=== PATIENT | male | born 1935 | race Caucasian/White ===

== ENCOUNTER → 2017-12-29 | Day surgery (SDC) | payer MEDICARE, BC ==
[2017-12-28 11:09] LABS: BASOPHILS # (AUTO) 0.1 (0.0-0.1); BASOPHILS % 0.4 % (0.0-1.0); EOSINOPHILS # (AUTO) 0.1 (0.0-0.4); EOSINOPHILS % 0.6 % (0.0-6.0); HEMOGLOBIN 12.9 g/dL (14.0-18.0); LYMPHOCYTES % 22.3 % (18.0-39.1); MEAN CORPUSCULAR HEMOGLOBIN 28.3 pg (28-32); MEAN CORPUSCULAR HGB CONC 32.3 g/dL (31-35); MEAN CORPUSCULAR VOLUME 87.7 fL (81-99); MONOCYTES # (AUTO) 1.1 (0.2-0.8); MONOCYTES % 8.1 % (4.4-11.3); NEUTROPHILS # (AUTO) 9.3 (2.1-6.9); NEUTROPHILS % 68.3 % (38.7-80.0); PLATELET COUNT 301 x10e3/uL (140-360); RED BLOOD COUNT 4.56 x10e6/uL (4.3-5.7); RED CELL DISTRIBUTION WIDTH 14.6 % (11.7-14.4)
[2017-12-28 11:20] LABS: INR 0.93; PROTHROMBIN TIME 13.3 seconds (11.9-14.5)
[2017-12-28 11:28] LABS: ALBUMIN 3.9 g/dL (3.5-5.0); ANION GAP 18.7 mmol/L (8-16); CALCIUM 9.8 mg/dL (8.4-10.2); CHOL/HDL RATIO 5.5 (3.9-4.7); CREATININE, SERUM 1.72 mg/dL (0.72-1.25); POTASSIUM 4.7 mmol/L (3.5-5.1)
[~2017-12-29] VITALS: Ht 177.8 cm; Wt 129.3 kg
[2017-12-29] VITALS (12 sets, daily range): BP systolic 151–184; BP diastolic 64–94
[~2017-12-29] MED LIST: ALBUTEROL0.63 MG/3 INH; ALPRAZOLAM 0.5 MG TAB ONE; AMLODIPINE BESYL5 MG PO; ASPIR 8181 MG PO; ASTEPRO205.5 MCG/; ATORVASTATIN CA20 MG PO; AZELASTINE137 MCG/0.; BUPROPION HCL100 MG PO; CEFDINIR300 MG PO; CELEBREX200 MG PO; CLONAZEPAM1 MG PO; CLONIDINE HCL0.1 MG PO; DEPO-TESTO200 MG/1 M INJ; DIOVAN160 MG PO; DIOVAN80 MG PO; DIPHENHYDRAMINE HCL 25 MG CAP ONE; FELODIPINE ER10 MG PO; FENTANYL CITRATE/PF 100MCG/2 ML INJ ONE; FINASTERIDE5 MG PO; FLUTICASONE PRO16 GM; FUROSEMIDE PO; FUROSEMIDE40 MG PO; GLYBURIDE5 MG PO; HEPARIN SOD/SOD CHLORIDE 2,000 ML ONE; HYDROCHLOROTHIA25 MG PO; IOPAMIDOL 370 MG/ML 200 ML INFUS..BTL INJ ONE; LASIX20 MG PO; LEVAQUIN500 MG PO; LEVAQUIN750 MG PO; LEVEMIR100 UNIT/1 SC; LEVOTHYROXINE50 MCG PO; LEXAPRO10 MG PO; LIDOCAINE HCL 2% LOCAL 20 ML VIAL ONE; LYRICA75 MG PO; METFORMIN HCL500 MG PO; METHOCARBAMOL750 MG PO; METHYLIN20 MG PO; METOPROLOL SUCC25 MG PO; MIDAZOLAM HCL 2 MG/2 ML VIAL ONE; NEXIUM20 MG PO; NEXIUM40 MG PO; NITROGLYCERIN0.4 MG SL; PREDNISONE20 MG PO; PREDNISONE50 MG PO; RITALIN20 MG PO; SODIUM CHLORIDE 0.9% 1000ML 1,000 ML ONE; SPIRIVA18 MCG INH; TAMSULOSIN HCL0.4 MG PO; TRESIBA SC; TURMERIC500 MG PO; VERAPAMIL HCL 2.5 MG/ML 2 ML VIAL ONE; VIIBRYD40 MG PO; VITAMIN B-121000 MCG PO; VITAMIN C500 MG PO; VITAMIN D32000 UNI1 PO; VYTORIN 10-201 EACH PO; VYTORIN 10-401 EACH PO; [UNRECOGNIZED DRUG - OTHER] PO
--- OUTSIDE RECORDS SUMMARY | 2017-12-29 07:26 | XMS REPORT | Continuity of Care Document ---
Author Author [facility] Interface Address Unknown Phone Unavailable Problems Problem Status Onset Date Classification Date Reported Comments Source Bradycardia, unspecified 04/16/2017 07/16/2017 [facility] HYPOTENSION Active 04/08/2017 [facility] Influenza vaccine needed 10/18/2015 Diagnosis 10/18/2015 [facility] CONFUSION/FACIAL DROOP Active 12/08/2013 [facility] TIA Active 12/08/2013 [facility] TIA Active 12/08/2013 [facility] Hypotension, unspecified 07/16/2017 [facility] Dehydration 07/16/2017 [facility] Acute kidney failure, unspecified 07/16/2017 [facility] Diarrhea, unspecified 07/16/2017 [facility] Adverse effect of loop [high-ceiling] diuretics, initial encounter 07/16/2017 [facility] Syncope and collapse 07/16/2017 [facility] Other specified abnormal findings of blood chemistry 07/16/2017 [facility] Chest pain, unspecified 07/16/2017 [facility] Type 2 diabetes mellitus with diabetic neuropathy, unspecified 07/16/2017 [facility] 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 07/16/2017 [facility] Hypertensive heart disease with heart failure 07/16/2017 [facility] Chronic diastolic heart failure 07/16/2017 [facility] Hypovolemia 07/16/2017 [facility] Pure hypercholesterolemia, unspecified 07/16/2017 [facility] Hypothyroidism, unspecified 07/16/2017 [facility] Benign prostatic hyperplasia without lower urinary tract symptoms 07/16/2017 [facility] Unspecified osteoarthritis, unspecified site 07/16/2017 [facility] Major depressive disorder, single episode, unspecified 07/16/2017 [facility] Presence of aortocoronary bypass graft 07/16/2017 [facility] Personal history of transient ischemic attack , and cerebral infarction without residual deficits 07/16/2017 [facility] Presence of artificial knee joint, bilateral 07/16/2017 [facility] Personal history of nicotine dependence 07/16/2017 [facility]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/16/2017 [facility] assisted use of oral hypoglycemic drugs 07/16/2017 [facility] Acute sciatica Resolved Problem 07/16/2017 [facility] Arthritis Resolved Problem 07/16/2017 [facility] CAD (<span ID="[id number]">Confirmed</span>) Resolved Problem 07/16/2017 [facility] Depression Resolved Problem 07/16/2017 [facility] Diabetes mellitus Resolved Problem 07/16/2017 [facility] Hypercholesteremia Resolved Problem 07/16/2017 [facility] Hypertension Resolved Problem 07/16/2017 [facility] Implant<sup>1</sup> Resolved Problem 07/16/2017 Penile [facility] Neuropathy Resolved Problem 07/16/2017 [facility] 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 07/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 [facility] TIA Resolved Problem 07/16/2017 [facility] TRANS CEREB ISCHEMIA NEC Active [facility] ACUTE KIDNEY FAILURE, UNSPECIFIED Active [facility] Medications Medication Details Route Status Patient Instructions Ordering Provider Order Date Source Hydralazine 25 mg, 1 tab, Route: PO, Drug form: TAB, Q8H- 06, Dosing Weight 120.455, kg, Start date: 04/09/17 14:00:00 SHIP MATE, Duration: 30 day, Stop date: 05/09/17 6:00:00 CDTNotes: (Same as: Apresoline) May interfere w/enteral feedings Take With Food. Inactive 04/09/2017 [facility] valsartan 40 mg oral tablet 40 mg=1 tab, PO, Daily, HOLD IF SBP LESS THAN OR EQUAL TO 120, # 30 tab, 2 Refill(s), Pharmacy: [facility]/pharmacy #[id number] Active 04/09/2017 [facility] Blood Pressure Monitor Upper Arm Misc/Other 1 ea, MISC, ONCE, Provide patient with extra large adult cuff. Diagnosis: 401.1, # 1 ea, 0 Refill(s) Active 04/09/2017 [facility] Amlodipine 10 mg, 1 tab, Route: PO, Drug form: TAB, Daily, Dosing Weight 120.455, kg, Start date: 04/09/17 13:00:00 SHIP MATE, Duration: 30 day, Stop date: 05/09/17 9:00:00 CDTNotes: (Same as: Norvasc) Inactive 04/09/2017 [facility] valsartan 40 mg, 1 tab, Route: PO, Drug form: TAB, Daily, Dosing Weight 120.455, kg, Start date: 04/09/17 13:00:00 SHIP MATE, Duration: 30 day, Stop date: 05/09/17 9:00:00 CDTNotes: Same as Diovan Inactive 04/09/2017 [facility] Streptococcus pneumoniae serotype 1 capsular antigen diphtheria [id number] protein conjugate vaccine / Streptococcus pneumoniae serotype 14 capsular antigen diphtheria [id number] protein conjugate vaccine / Streptococcus pneumoniae serotype 18C capsular antigen d 0.5 mL, Route: IM, Drug Form: INJ, ONCALL, Start date: 04/09/17 10:00:00 SHIP MATE, Duration: 30 day, Stop date: 05/09/17 10:59:00 CDTNotes: Shake well prior to use (Same as: Prevnar 13) Inactive 04/09/2017 [facility] influenza virus vaccine, inactivated 0.5 mL, Route: IM, Drug Form: SUSP, ONCALL, Start date: 04/09/17 10:00:00 SHIP MATE, Duration: 30 day, Stop date: 05/09/17 10:59:00 CDTNotes: (Same as: Fluzone Quadrivalent, Fluarix Quadrivalent) For 3 years of age and older (0.5 mL IM) Shake well before use Inactive 04/09/2017 [facility] Aspirin 325 MG Enteric Coated Tablet 325 mg, 1 tab, Route: PO, Drug form: ECTAB, Daily, Dosing Weight 120.455, kg, Start date: 04/09/17 9:00:00 SHIP MATE, Duration: 30 day, Stop date: 05/08/17 9:00:00 CDTNotes: (Do Not Crush) Do not crush or chew. Inactive 04/09/2017 [facility] Thyroxine 50 microgram, 1 tab, Route: PO, Drug form: TAB, Q630AM, Dosing Weight 120.455, kg, Start date: 04/09/17 6:30:00 SHIP MATE, Duration: 30 day, Stop date: 05/08/17 6:30:00 CDTNotes: Take 1 hour before or 2 hours after meal; Enteral feeds may interefere with the absorption of this medication.(Same as:Levothroid, Synthroid) Inactive 04/09/2017 [facility] vilazodone hydrochloride 40 MG Oral Tablet [Viibryd] 40 mg=1 tab, PO, Daily, 0 Refill(s) No Longer Active 04/09/2017 [facility] predniSONE 20 mg oral tablet 20 mg=1 tab, PO, Daily, 0 Refill(s) Active 04/09/2017 [facility] tramadol hydrochloride 50 MG Oral Tablet 50 mg=1 tab, PO, Q6H, PRN Pain Score 1-5, 0 Refill(s) Active 04/09/2017 [facility] Amlodipine 10 mg, PO, Daily, 0 Refill(s) Active 04/09/2017 [facility] Saline Flush 0.9% 10 ml, Route: IVP, Drug Form: INJ, Dosing Weight 120.455, kg, Q12H, Start date: 04/08/17 21:00:00 SHIP MATE, Duration: 30 day, Stop date: 05/08/17 9:00:00 CDTNotes: (Same as: BD Posiflush) No Longer Active 04/09/2017 [facility] heparin 5,000 unit, 1 mL, Route: SUB-Q, Drug form: INJ, Q12H, Dosing Weight 120.455, kg, Start date: 04/08/17 21:00:00 SHIP MATE, Stop date: 05/08/17 9:00:00 CDTNotes: porcine heparin No Longer Active 04/09/2017 [facility] Lipitor 40 mg, 1 tab, Route: PO, Drug form: TAB, Bedtime, Dosing Weight 120.455, kg, Start date: 04/08/17 21:00:00 SHIP MATE, Duration: 30 day, Stop date: 05/07/17 21:00:00 CDTNotes: (Same as: Lipitor) No Longer Active 04/09/2017 [facility] Lyrica 75 mg, 1 cap, Route: PO, Drug form: CAP, Q12H, Dosing Weight 120.455, kg, Start date: 04/08/17 21:00:00 SHIP MATE, Duration: 30 day, Stop date: 05/08/17 9:00:00 CDTNotes: (Same as: Lyrica) No Longer Active 04/09/2017 [facility] Clonazepam 1 mg, 1 tab, Route: PO, Drug form: TAB, BID, Dosing Weight 120.455, kg, PRN Anxiety, Start date: 04/08/17 19:44:00 SHIP MATE, Duration: 30 day, Stop date: 05/08/17 19:43:00 CDTNotes: (Same As: KlonoPIN) No Longer Active 04/09/2017 [facility] Tessalon Perles 100 mg, 1 cap, Route: PO, Drug form: CAP, TID, Dosing Weight 120.455, kg, PRN Cough, Start date: 04/08/17 19:44:00 SHIP MATE, Duration: 30 day, Stop date: 05/08/17 19:43:00 CDTNotes: (Same As: Tessalon Per les) "Do Not Crush" No Longer Active 04/09/2017 [facility] Azelastine hydrochloride 0.137 MG/ACTUAT Metered Dose Nasal [place] 2 spray, Route: NASAL, Drug Form: SPRY, Dosing Weight 120.455, kg, BID, PRN as needed for allergy symptoms, Start date: 04/08/17 19:44:00 SHIP MATE, Duration: 30 day, Stop date: 05/08/17 19:43:00 CDTNotes: (azelastine 137 microgram/inh 34 ml nasal SPR) Non-formulary drug. Same As: Astelin) No Longer Active 04/09/2017 [facility] Benadryl 25 mg, 0.5 mL, Route: IVP, Drug form: INJ, QID, Dosing Weight 120.455, kg, PRN as needed for itching, Start date: 04/08/17 19:43:00 SHIP MATE, Duration: 30 day, Stop date: 05/08/17 19:42:00 CDTNotes: (Same as: Benadryl) No Longer Active 04/09/2017 [facility] Sodium Chloride 0.9% IV 1,000 mL 1,000 mL, Rate: 40 ml/hr, Infuse over: 25 hr, Route: IV, Dosing Weight 120.455 kg, Total Volume: 1,000, Start date: 04/08/17 19:40:00 SHIP MATE, Duration: 30 day, Stop date: 05/08/17 19:39:00 CDT, 2.44, m2 No Longer Active 04/09/2017 [facility] levothyroxine 50 mcg (0.05 mg) oral tablet 50 microgram=1 tab, PO, Daily, # 30 tab, 0 Refill(s) Active 04/09/2017 [facility] Cholecalciferol 2000 UNT Oral Tablet 2,000 IntlUnit=1 tab, PO, Daily, # 30 tab, 0 Refill(s) Active 04/09/2017 [facility] azelastine nasal 137 mcg/inh spray 2 spray, NASAL, BID, PRN as needed for allergy symptoms, 0 Refill(s) Active 04/09/2017 [facility] benzonatate 100 MG Oral Capsule [Tessalon Perles] 100 mg=1 cap, PO, TID, PRN as needed for cough, # 30 cap, 0 Refill(s) Active 04/09/2017 [facility] amLODIPine 5 mg oral tablet 5 mg=1 tab, PO, Daily, # 30 tab, 0 Refill(s) No Longer Active 04/09/2017 [facility] isosorbide mononitrate 30 mg oral tablet, extended release 30 mg=1 tab, PO, QAM, # 30 tab, 0 Refill(s) Active 04/09/2017 [facility] Aspirin 81 MG Enteric Coated Tablet 81 mg=1 tab, PO, Daily, # 90 tab, 3 Refill(s) Active 04/09/2017 [facility] atorvastatin 40 MG Oral Tablet [Lipitor] 40 mg=1 tab, PO, Daily, # 30 tab, 0 Refill(s) Active 04/09/2017 [facility] pregabalin 150 MG Oral Capsule [Lyrica] 150 mg=1 cap, PO, BID, # 60 cap, 1 Refill(s) Active 04/09/2017 [facility] Metformin hydrochloride 1000 MG Oral Tablet 1,000 mg=1 tab, PO, BID-Meals, # 60 tab, 0 Refill(s) Active 04/09/2017 [facility] valsartan 80 mg oral tablet 80 mg=1 tab, PO, Daily, # 30 tab, 0 Refill(s) No Longer Active 04/09/2017 [facility] 3 ML insulin degludec 200 UNT/ML Pen Injector [Tresiba] 80 unit, SUB-Q, Daily, 0 Refill(s) Active 04/09/2017 [facility] Metoprolol Succinate ER 50 mg oral tablet, extended release 50 mg=1 tab, PO, Q12H, # 90 tab, 0 Refill(s) No Longer Active 04/09/2017 [facility] Insulin Lispro 2 unit, 0.02 mL, Route: SUB-Q, Drug form: SOLN, Bedtime, Dosing Weight 120.455, kg, PRN Blood Glucose Results, Start date: 04/08/17 17:02:00 SHIP MATE, Duration: 30 day, Stop date: 05/08/17 17:01:00 CDTNotes: (Same as: Humalog ) Roll in palms of hands gently; Do not shake `vigorously. "Single Patient Use Only " WASTE: F/P - Black; E - Municipal Trash Bin Stable for 28 days at room temperature. Expires in days from Date No Longer Active 04/08/2017 [facility] Dextrose 50% Syringe 12.5 gm, 25 mL, Route: IVP, Drug Form: INJ, Dosing Weight 120.455, kg, PRN, PRN Blood Glucose Results, Start date: 04/08/17 17:02:00 SHIP MATE, Duration: 30 day, Stop date: 05/08/17 18:01:00 CDT No Longer Active 04/08/2017 [facility] Glucagon 1 mg, Route: IM, Drug form: PDR/INJ, PRN, Dosing Weight 120.455, kg, PRN Blood Glucose Results, Start date: 04/08/17 17:02:00 SHIP MATE, Duration: 30 day, Stop date: 05/08/17 18:01:00 CDT No Longer Active 04/08/2017 [facility] Saline Flush 0.9% 10 ml, Route: IVP, Drug Form: INJ, Dosing Weight 120.455, kg, PRN, PRN Line Flush, Start date: 04/08/17 16:58:00 SHIP MATE, Duration: 30 day, Stop date: 05/08/17 17:57:00 CDTNotes: (Same as: BD Posiflush) No Longer Active 04/08/2017 [facility] Zofran 4 mg, 2 mL, Route: IV, Drug form: INJ, Q4H, Dosing Weight 120.455, kg, PRN Nausea, Start date: 04/08/17 16:58:00 SHIP MATE, Duration: 30 day, Stop date: 05/08/17 16:57:00 CDTNotes: (Same as: Zofran) MEDICATION WASTE Product Size: 4 mg Product Wasted: 0 mg No Longer Active 04/08/2017 [facility] Docusate Sodium 100 MG Oral Capsule [Colace] 100 mg, 1 cap, Route: PO, Drug form: CAP, BID, Dosing Weight 120.455, kg, PRN Constipation, Start date: 04/08/17 16:58:00 SHIP MATE, Duration: 30 day, Stop date: 05/08/17 16:57:00 CDTNotes: (Same as: Colace) (Do Not Crush) No Longer Active 04/08/2017 [facility] Morphine 2 mg, 1 mL, Route: IVP, Drug form: SOLN, Q4H, Dosing Weight 120.455, kg, PRN Chest Pain, Start date: 04/08/17 16:58:00 SHIP MATE, Duration: 30 day, Stop date: 05/08/17 16:57:00 CDT No Longer Active 04/08/2017 [facility] Lopressor 5 mg, 5 mL, Route: IVP, Drug form: INJ, Q6H, Dosing Weight 120.455, kg, PRN Other -See Comment, Start date: 04/08/17 16:58:00 SHIP MATE, Duration: 30 day, Stop date: 05/08/17 16:57:00 CDT, HR >/=100 OR SBP > /=175Notes: (Same as: Lopressor) Push over 2 minutes No Longer Active 04/08/2017 [facility] Hydralazine 10 mg, 0.5 mL, Route: IVP, Drug form: INJ, Q6H, Dosing Weight 120.455, kg, PRN Elevated BP, Start date: 04/08/17 16:58:00 SHIP MATE, Duration: 30 day, Stop date: 05/08/17 16:57:00 CDT, SBP>/=160 OR DBP> /=90Notes: (Same as: Apresoline) Push over 5 minutes No Longer Active 04/08/2017 [facility] Acetaminophen 650 mg, 2 tab, Route: PO, Drug form: TAB, Q6H, Dosing Weight 120.455, kg, PRN Pain 1-3/Temp > 99.5 F, Start date: 04/08/17 16:58:00 SHIP MATE, Duration: 30 day, Stop date: 05/08/17 16:57:00 CDTNotes: Do not exceed 4 gm/day. (Same as: Tylenol) No Longer Active 04/08/2017 [facility] Acetaminophen 325 MG / Hydrocodone Bitartrate 7.5 MG Oral Tablet [[place] 7.5/325] 1 tab, Route: PO, Drug Form: TAB, Dosing Weight 120.455, kg, Q4H, PRN Pain Score 4-6, Start date: 04/08/17 16:58:00 SHIP MATE, Duration: 30 day, Stop date: 05/08/17 16:57:00 CDTNotes: Same as [place] 325-7.5mg Do not exceed 4gm/day of acetaminophen. No Longer Active 04/08/2017 [facility] GI cocktail 30 ml, Route: PO, Drug Form: SUSP, Dosing Weight 120.455, kg, Q4H, PRN Indigestion, Routine, Start date: 04/08/17 16:58:00 SHIP MATE, Duration: 30 day, Stop date: 05/08/17 16:57:00 CDT, DYSPEPSIANotes: [place]. [facility] ocktail=antacid with simethicone 22.5 mL - lidocaine viscous 7.5 mL No Longer Active 04/08/2017 [facility] Nitroglycerin 0.4 mg, 1 tab, Route: SL, Drug form: TAB, Q5Min, Dosing Weight 120.455, kg, PRN Chest Pain, Start date: 04/08/17 16:58:00 SHIP MATE, Duration: 3 doses or times, Stop date: Limited # of timesNotes: (Same as:Magi Bender) "Do Not Crush" Sublingual tablet No Longer Active 04/08/2017 [facility] Protonix 40 mg, 1 tab, Route: PO, Drug form: ECTAB, Before Breakfast, Dosing Weight 120.455, kg, Priority: NOW, Start date: 04/08/17 16:57:00 SHIP MATE, Duration: 30 day, Stop date: 05/08/17 7:30:00 CDTNotes: Tablet s hould not be chewed or crushed. (Same as: Protonix) No Longer Active 04/08/2017 [facility] Melatonin 3 mg, 1 tab, Route: PO, Drug form: TAB, Bedtime, Dosing Weight 120.455, kg, PRN as needed for insomnia, Start date: 04/08/17 16:57:00 SHIP MATE, Duration: 30 day, Stop date: 05/08/17 16:56:00 CDT, ..Notes: (Same as: Melatonin) No Longer Active 04/08/2017 [facility] NS (Bolus) IV 1,000 mL, 1,000 ml/hr, Infuse Over: 1 hr, Route: IV, 1,000, Drug form: INJ, ONCE, Priority: STAT, Dosing Weight 120.455 kg, Start date: 04/08/17 14:01:00 SHIP MATE, Stop date: 04/08/17 14:01:00 SHIP MATE Inactive 04/08/2017 [facility] Saline Flush 0.9% 10 mL, Route: IVP, Drug Form: INJ, Dosing Weight 122.409, kg, PRN, PRN Line Flush, Start date: 04/08/17 13:41:00 SHIP MATE, Duration: 30 day, Stop date: 05/08/17 14:40:00 CDTNotes: (Same as: BD Posiflush) Inactive 04/08/2017 [facility] Aspirin 81 MG Enteric Coated Tablet 81 mg=1 tab, PO, Daily, # 30 tab, 0 Refill(s) Active 12/10/2013 [facility] Thyroxine 25 microgram, 1 tab, Route: PO, Drug form: TAB, Daily, Dosing Weight 123.182, kg, Start date: 12/10/13 6:00:00, Duration: 30 day, Stop date: 01/08/14 6:00:00Notes: Take 1 hour before or 2 hours after meal; Enteral feeds may interefere with the absorption of this medication. (Same as:Levothroid) Inactive 12/10/2013 [facility] tamsulosin 0.4 mg, 1 cap, Route: PO, Drug form: CAP, Bedtime, Dosing Weight 123.182, kg, Start date: 12/09/13 21:00:00, Duration: 30 day, Stop date: 01/07/14 21:00:00Notes: (Same As: Flomax) "Do Not Crush" No Longer Active 12/10/2013 [facility] ezetimibe 10 MG / Simvastatin 40 MG Oral Tablet 1 tab, Route: PO, Dosing Weight 123.182, kg, Bedtime, Start date: 12/09/13 21:00:00, Duration: 30 day, Stop date: 01/07/14 21:00:00 Inactive 12/10/2013 [facility] Zocor 40 mg, 1 tab, Route: PO, Drug form: TAB, Bedtime, Start date: 12/09/13 21:00:00, Duration: 30 day, Stop date: 01/07/14 21:00:00Notes: (Same as: Zocor) No Longer Active 12/10/2013 [facility] Glipizide 5 mg, 1 tab, Route: PO, Drug form: TAB, Daily, Dosing Weight 122.409, kg, Priority: NOW, Start date: 12/09/13 17:01:00, Duration: 30 day, Stop date: 01/08/14 9:00:00Notes: (Same as: Glucotrol) 30 min before meals. No Longer Active 12/09/2013 [facility] Zetia 10 mg, 1 tab, Route: PO, Drug form: TAB, QPM, Start date: 12/09/13 17:00:00, Duration: 30 day, Stop date: 01/07/14 17:00:00Notes: (Same as: Zetia) No Longer Active 12/09/2013 [facility] Protonix 40 mg, 1 tab, Route: PO, Drug form: ECTAB, Before Dinner, Start date: 12/09/13 16:30:00, Duration: 30 day, Stop date: 01/07/14 16:30:00Notes: Tablet should not be chewed or crushed. (Same as: Protonix) No Longer Active 12/09/2013 [facility] Aspirin 325 MG Enteric Coated Tablet 325 mg, 1 tab, Route: PO, Drug form: ECTAB, Daily, Dosing Weight 123.182, kg, Start date: 12/09/13 9:00:00, Duration: 30 day, Stop date: 01/07/14 9:00:00Notes: (Do Not Crush) Do not crush or chew. No Longer Active 12/09/2013 [facility] Bystolic 10 mg, 2 tab, Route: PO, Drug form: TAB, Daily, Dosing Weight 123.182, kg, Start date: 12/09/13 9:00:00, Duration: 30 day, Stop date: 01/07/14 9:00:00Notes: (same as: Bystolic) No Longer Active 12/09/2013 [facility] Furosemide 40 MG Oral Tablet 40 mg, 1 tab, Route: PO, Drug form: TAB, BID, Dosing Weight 123.182, kg, Start date: 12/09/13 9:00:00, Duration: 30 day, Stop date: 01/07/14 17:00:00Notes: (Same as: Lasix) May cause GI upset. Give with food or milk. No Longer Active 12/09/2013 [facility] Nexium 40 mg, Route: PO, Daily, Dosing Weight 123.182, kg, Start date: 12/09/13 9:00:00, Duration: 30 day, Stop date: 01/07/14 9:00:00 Inactive 12/09/2013 [facility] Celebrex 200 mg, 2 cap, Route: PO, Drug form: CAP, Daily, Dosing Weight 123.182, kg, Start date: 12/09/13 9:00:00, Duration: 30 day, Stop date: 01/07/14 9:00:00Notes: NSAID. Please check indication. Not for seizure. (Same As: CeleBREX ) No Longer Active 12/09/2013 [facility] Insulin, Regular, Pork 1 unit, 0.01 mL, Route: SUB-Q, Drug form: SOLN, Bedtime, Dosing Weight 123.182, kg, PRN Blood Glucose Results, Start date: 12/09/13 3:07:00, Duration: 30 day, Stop date: 01/08/14 3:06:00Notes: (Same as: Humulin R) Roll in palms of hands gently; Do not shake vigorously. "single patient use only" (Restricted to patients requiring a dose > 60 units) Stable for 28 days at room temperature Expires in days from Date No Longer Active 12/09/2013 [facility] Glucagon 1 mg, Route: IM, Drug form: PDR/INJ, PRN, Dosing Weight 123.182, kg, PRN Blood Glucose Results, Start date: 12/09/13 3:07:00, Duration: 30 day, Stop date: 01/08/14 2:06:00 No Longer Active 12/09/2013 [facility] Dextrose 50% Syringe 12.5 gm, 25 mL, Route: IVP, Drug Form: INJ, Dosing Weight 123.182, kg, PRN, PRN Blood Glucose Results, Start date: 12/09/13 3:07:00, Duration: 30 day, Stop date: 01/08/14 2:06:00 No Longer Active 12/09/2013 [facility] Nitroglycerin 0.4 MG Sublingual Tablet [Nitrostat] 0.4 mg, 1 tab, Route: SL, Drug form: TAB, Q5Min, Dosing Weight 123.182, kg, PRN as needed for chest pain, Start date: 12/09/13 2:57:00, Stop date: 01/08/14 1:56:00Notes: (Same as:Nitroquick, Nitrostat) "Do Not Crush" Sublingual tablet No Longer Active 12/09/2013 [facility] Clonazepam 1 mg, 1 tab, Route: PO, Drug form: TAB, BID, Dosing Weight 123.182, kg, PRN Anxiety, Start date: 12/09/13 2:57:00, Stop date: 01/08/14 2:56:00Notes: (Same As: KlonoPIN) No Longer Active 12/09/2013 [facility] Acetaminophen 325 MG / Hydrocodone Bitartrate 7.5 MG Oral Tablet [[place] 7.5/325] 1 tab, Route: PO, Drug Form: TAB, Dosing Weight 123.182, kg, Q4H, PRN as needed for pain, Start date: 12/09/13 2:57:00, Stop date: 01/08/14 2:56:00Notes: Same as [place] 325-7.5mg Do not exceed 4gm/day of acetaminophen. No Longer Active 12/09/2013 [facility] Clonidine Hydrochloride 0.1 MG Oral Tablet 0.1 mg, Route: PO, Drug form: TAB, ONCE, Dosing Weight 123.182, kg, Priority: STAT, Start date: 12/09/13 1:38:00, Stop date: 12/09/13 1:38:00 Inactive 12/09/2013 [facility] Nitroglycerin 0.02 MG/MG Topical Ointment 1 inch, Route: TOP, Drug Form: OINT, Dosing Weight 123.182, kg, ONCE, STAT, Start date: 12/09/13 1:34:00, Stop date: 12/09/13 1:34:00Notes: 1 gram is approximately 1 inch of nitroglycerin ointment (20 mg NTG per gram) (Same as:Nitro-Bid) Inactive 12/09/2013 [facility] Labetalol 20 mg, 4 mL, Route: IVP, Drug form: INJ, ONCE, Dosing Weight 123.182, kg, Priority: STAT, Start date: 12/09/13 1:00:00, Stop date: 12/09/13 1:00:00 Inactive 12/09/2013 [facility] aspirin 325 mg tablet 325 mg, 1 tab, Route: PO, Drug form: TAB, ONCE, Dosing Weight 123.182, kg, Priority: STAT, Start date: 12/08/13 23:48:00, Stop date: 12/08/13 23:48:00Notes: Take with food. No Longer Active 12/09/2013 [facility] Iohexol 85 mL, Route: IVP, Drug Form: SOLN, Dosing Weight 123.182, kg, ONCALL, STAT, Start date: 12/08/13 23:15:00, Duration: 1 doses or times, Dose=2.2ml/kg, Max clxa=056nd -- "To be infused by Radiology Staff ONLY"Special Instructions: Dose=2.2ml/kg, Max xrps=927ch -- "To be infused by Radiology Staff ONLY" Inactive 12/09/2013 [facility] Amlodipine 5 MG Oral Tablet amlodipine 5 mg tablet Active [facility] Azelastine hydrochloride 0.137 MG/ACTUAT Metered Dose Nasal [place] azelastine 137 mcg (0.1 %) nasal spray aerosol Active [facility] Azithromycin 250 MG Oral Tablet azithromycin 250 mg tablet Active [facility] benzonatate 200 MG Oral Capsule benzonatate 200 mg capsule Active [facility] 24 HR Bupropion Hydrochloride 150 MG Extended Release Oral Tablet bupropion HCl XL 150 mg 24 hr tablet, extended release Active [facility] nebivolol 20 MG Oral Tablet [Bystolic] Bystolic 20 mg tablet Active [facility] cefdinir 300 MG Oral Capsule cefdinir 300 mg capsule Active [facility] celecoxib 200 MG Oral Capsule celecoxib 200 mg capsule Active [facility] Cephalexin 500 MG Oral Capsule cephalexin 500 mg capsule Active [facility] Codeine Phosphate 2 MG/ML / Guaifenesin 20 MG/ML Oral Solution [Cheratussin] Cheratussin AC 10 mg-100 mg/5 mL oral liquid Active [facility] Ciprofloxacin 500 MG Oral Tablet ciprofloxacin 500 mg tablet Active [facility] Clonazepam 1 MG Oral Tablet clonazepam 1 mg tablet Active [facility] Clonidine Hydrochloride 0.1 MG Oral Tablet clonidine HCl 0.1 mg tablet Active [facility] Escitalopram 10 MG Oral Tablet escitalopram 10 mg tablet Active [facility] Escitalopram 20 MG Oral Tablet escitalopram 20 mg tablet Active [facility] 24 HR Felodipine 10 MG Extended Release Oral Tablet felodipine ER 10 mg tablet,extended release 24 hr Active [facility] Finasteride 5 MG Oral Tablet finasteride 5 mg tablet Active [facility] Fluconazole 100 MG Oral Tablet fluconazole 100 mg tablet Active [facility] Fluticasone propionate 0.05 MG/ACTUAT Metered Dose Nasal [place] fluticasone 50 mcg/actuation nasal spray,suspension Active [facility] 0.5 ML influenza A virus A/ (H1N1) antigen 0.12 MG/ML / influenza A virus A/[id number] (H3N2) antigen 0.12 MG/ML / [facility] 0.12 MG/ML Prefilled Syringe [Fluzone [id number]] Fluzone High-Dose 2014- (PF) 180 mcg/0.5 mL intramuscular syringe IMMUNIZATION GIVEN Active [facility] Furosemide 40 MG Oral Tablet furosemide 40 mg tablet Active [facility] gabapentin 100 MG Oral Capsule gabapentin 100 mg capsule TAKE ONE (1) CAPSULE(S) BY MOUTH THREE TIMES A DAY FOR DAYS 1-3, THEN 2 CAPSULES 3 TIMES A DAY DAYS 4-6, THEN 3 CAPSULES 3 TIMES A DAY DAYS Active [facility] Glipizide 5 MG Oral Tablet glipizide 5 mg tablet TAKE ONE (1) TABLET(S) BY MOUTH DAILY. Active [facility] Glyburide 5 MG Oral Tablet glyburide 5 mg tablet Active [facility] Hydrochlorothiazide 25 MG Oral Tablet hydrochlorothiazide 25 mg tablet Active [facility] Acetaminophen 325 MG / Hydrocodone Bitartrate 7.5 MG Oral Tablet hydrocodone 7.5 mg-acetaminophen 325 mg tablet Active [facility] homatropine methylbromide 0.3 MG/ML / Hydrocodone Bitartrate 1 MG/ML Oral Solution hydrocodone-homatropine 5 mg-1.5 mg/5 mL syrup Active [facility] inControl Pen Needle 31 gauge x 3/16" inControl Pen Needle 31 gauge x 3/16" Active [facility] Potassium Chloride 10 MEQ Extended Release Oral Tablet [Klor-Con] Klor-Con 10 mEq tablet,extended release Active [facility] 3 ML insulin detemir 100 UNT/ML Pen Injector [Levemir] Levemir FlexTouch 100 unit/mL (3 mL) subcutaneous insulin pen Active [facility] Levofloxacin 500 MG Oral Tablet levofloxacin 500 mg tablet Active [facility] Levofloxacin 750 MG Oral Tablet levofloxacin 750 mg tablet Active [facility] Levothyroxine Sodium 0.025 MG Oral Tablet levothyroxine 25 mcg tablet Active [facility] pregabalin 150 MG Oral Capsule [Lyrica] Lyrica 150 mg capsule Active [facility] pregabalin 75 MG Oral Capsule [Lyrica] Lyrica 75 mg capsule Active [facility] Metformin hydrochloride 1000 MG Oral Tablet metformin 1,000 mg tablet TAKE ONE (1) TABLET(S) BY MOUTH TWICE A DAY. Active [facility] Metformin hydrochloride 500 MG Oral Tablet metformin 500 mg tablet TAKE ONE (1) TABLET(S) BY MOUTH ONCE A DAY. Active [facility] Osmotic 24 HR Metformin hydrochloride 500 MG Extended Release Oral Tablet metformin ER 500 mg tablet,extended release 24hr Active [facility] Methocarbamol 750 MG Oral Tablet methocarbamol 750 mg tablet Active [facility] Methylphenidate Hydrochloride 20 MG Oral Tablet methylphenidate 20 mg tablet Active [facility] 24 HR metoprolol succinate 25 MG Extended Release Oral Tablet metoprolol succinate ER 25 mg tablet,extended release 24 hr TAKE ONE (1) TABLET(S) BY MOUTH DAILY. Active [facility] Mupirocin 0.02 MG/MG Topical Ointment mupirocin 2 % topical ointment APPLY ONCE TO THREE TIMES A DAY TO WOUND. Active [facility] Esomeprazole 40 MG Delayed Release Oral Capsule [Nexium] Nexium 40 mg capsule,delayed release Active [facility] 24 HR Niacin 1000 MG Extended Release Oral Tablet [Niaspan] Niaspan 1,000 mg tablet,extended release Active [facility] Nitroglycerin 0.4 MG Sublingual Tablet [Nitrostat] Nitrostat 0.4 mg sublingual tablet Active [facility] Sulfacetamide Sodium 100 MG/ML / Sulfur 50 MG/ML Medicated Liquid Soap [Prascion] PRASCION 10 %-5 % (w/w) topical cleanser Active [facility] 0.5 ML Streptococcus pneumoniae serotype 1 capsular antigen diphtheria [id number] protein conjugate vaccine 0.0044 MG/ML / Streptococcus pneumoniae serotype 14 capsular antigen diphtheria [id number] protein conjugate vaccine 0.0044 MG/ML / Streptococcus pneumoniae serotype 18C capsular antigen diphtheria [id number] protein conjugate vaccine 0.0044 MG/ML / Streptococcus pneumoniae serotype 19A capsular antigen d iphtheria [id number] protein conjugate vaccine 0.0044 MG/ML / Streptococcus pneumoniae serotype 19F capsular antigen diphtheria [id number] protein conjugate vaccine 0.0044 MG/ML / Streptococcus pneumoniae serotype 23F capsular antigen diphtheria [id number] protein conjugate vaccine 0.0044 MG/ML / Streptococcus pneumoniae serotype 3 capsular antigen diphtheria [id number] protein conjugate vaccine 0.0044 MG/ML / Streptococcus pneumoniae serotype 4 capsular antigen diphtheria [id number] protein conjugate vaccine 0.0044 MG/ML / Streptococcus pneumoniae serotype 5 capsular antigen diphtheria [id number] protein conjugate vaccine 0.0044 MG/ML / Streptococcus pneumoniae serotype 6A capsular antigen diphtheria [id number] protein conjugate vaccine 0.0044 MG/ML / Streptococcus pneumoniae serotype 6B capsular antigen diphtheria [id number] protein conjugate vaccine 0.0088 MG/ML / Streptococcus pneumoniae serotype 7F capsular antigen diphtheria [id number] protein conjugate vaccine 0.0044 MG/ML / Streptococcus pneumoniae serotype 9V capsular antigen diphtheria [id number] protein conjugate vaccine 0.0044 MG/ML Prefilled Syringe [Prevnar 13] Prevnar 13 (PF) 0.5 mL intramuscular syringe IMMUNIZATION ADMINISTERED Active [facility] Ramipril 10 MG Oral Capsule ramipril 10 mg capsule Active [facility] tiotropium 0.018 MG Inhalant Powder [Spiriva] Spiriva with HandiHaler 18 mcg and inhalation capsules Active [facility] Tamsulosin hydrochloride 0.4 MG Oral Capsule tamsulosin 0.4 mg capsule Active [facility] testosterone cypionate 200 MG/ML Injectable Solution testosterone cypionate 200 mg/mL intramuscular oil Active [facility] valsartan 320 MG Oral Tablet valsartan 320 mg tablet Active [facility] vilazodone hydrochloride 40 MG Oral Tablet [Viibryd] Viibryd 40 mg tablet Active [facility] ezetimibe 10 MG / Simvastatin 20 MG Oral Tablet [Vytorin] Vytorin 10 mg-20 mg tablet Active [facility] ezetimibe 10 MG / Simvastatin 40 MG Oral Tablet [Vytorin] Vytorin 10 mg-40 mg tablet TAKE ONE (1) TABLET(S) BY MOUTH AT BEDTIME. Active [facility] Allergies, Adverse Reactions, Alerts Substance Category Reaction Severity Reaction type Status Date Reported Comments Source Immunizations Immunization Date Given Site Status Last Updated Comments Source influenza, high dose seasonal 10/18/2015 completed [facility] pneumococcal 23-valent vaccine 06/26/2013 Left deltoid completed [place] [facility] zoster 01/15/2012 completed [facility] influenza, seasonal, injectable 01/15/2012 completed [facility] Results Order Name Results Value Reference Range Date Interpretation Comments Source CARDIAC ENZYMES Troponin-I 0.09 ng/mL 0.00 - 0.40 04/09/2017 [facility] CARDIAC ENZYMES Total CK 60 unit/L 12 - 191 04/09/2017 [facility] CHEM PANEL eGFR 33 mL/min/1.73m2 04/09/2017 Result Comment: The eGFR is calculated using the CKD-EPI formula. In most young, healthy individuals the eGFR will be >90 mL/min/1.73m2. The eGFR declines with age. An eGFR of 60-89 may be normal in some populations, particularly the elderly, for whom the CKD-EPI formula has not been extensively validated. Use of the eGFR is not recommended in the following populations: Individuals with unstable creatinine concentrations, including patients and those with serious co-morbid conditions. Patients with extremes in muscle mass or diet. The data above are obtained from the National Kidney Disease Education Program (NKDEP) which additionally recommends that when the eGFR is used in patients with extremes of body mass index for purposes of drug dosing, the eGFR should be multiplied by the estimated BMI. [facility] CHEM PANEL Globulin 2.9 g/dL 2.7 - 4.2 04/09/2017 [facility] CHEM PANEL A/G Ratio 1.1 0.7 - 1.6 04/09/2017 [facility] CHEM PANEL ALT 20 unit/L 0 - 65 04/09/2017 [facility] CHEM PANEL AST 18 unit/L 0 - 37 04/09/2017 [facility] CHEM PANEL Alk Phos 46 unit/L 39 - 136 04/09/2017 [facility] CHEM PANEL Bili Total 0.3 mg/dL 0.2 - 1.3 04/09/2017 [facility] CHEM PANEL B/C Ratio 19 6 - 25 04/09/2017 [facility] CHEM PANEL Total Protein 6.1 g/dL 6.4 - 8.4 04/09/2017 [facility] CHEM PANEL Calcium Lvl 8.6 mg/dL 8.5 - 10.5 04/09/2017 [facility] CHEM PANEL CO2 27 meq/L 24 - 32 04/09/2017 [facility] CHEM PANEL AGAP 12.6 meq/L 10.0 - 20.0 04/09/2017 [facility] CHEM PANEL Albumin Lvl 3.2 g/dL 3.5 - 5.0 04/09/2017 [facility] CHEM PANEL Glucose Lvl 143 mg/dL 70 - 99 04/09/2017 [facility] CHEM PANEL Chloride Lvl 106 meq/L 95 - 109 04/09/2017 [facility] CHEM PANEL Creatinine Lvl 1.88 mg/dL 0.50 - 1.40 04/09/2017 [facility] CHEM PANEL Sodium Lvl 142 meq/L 135 - 145 04/09/2017 [facility] CHEM PANEL Potassium Lvl 3.6 meq/L 3.5 - 5.1 04/09/2017 [facility] CHEM PANEL BUN 35 mg/dL 7 - 22 04/09/2017 [facility] CHEM PANEL Lactic Acid Lvl 0.8 mMol/L 0.5 - 2.2 04/09/2017 [facility] CHEM PANEL Magnesium Lvl 1.8 mg/dL 1.8 - 2.4 04/09/2017 [facility] CHEM PANEL Phosphorus 3.5 mg/dL 2.5 - 4.5 04/09/2017 [facility] HEMATOLOGY Lymphocytes 27.2 % 20.0 - 40.0 04/09/2017 [facility] HEMATOLOGY Segs 63.5 % 45.0 - 75.0 04/09/2017 [facility] HEMATOLOGY Eosinophils 1.1 % 0.0 - 4.0 04/09/2017 [facility] HEMATOLOGY Monocytes 7.5 % 2.0 - 12.0 04/09/2017 [facility] HEMATOLOGY Lymphocytes # 2.4 K/CMM 1.0 - 5.5 04/09/2017 [facility] HEMATOLOGY Segs-Bands # 5.6 K/CMM 1.5 - 8.1 04/09/2017 [facility] HEMATOLOGY Basophils 0.7 % 0.0 - 1.0 04/09/2017 [facility] HEMATOLOGY Eosinophils # 0.1 K/CMM 0.0 - 0.5 04/09/2017 [facility] HEMATOLOGY Monocytes # 0.7 K/CMM 0.0 - 0.8 04/09/2017 [facility] HEMATOLOGY Basophils # 0.1 K/CMM 0.0 - 0.2 04/09/2017 [facility] HEMATOLOGY MPV 9.3 fL 7.4 - 10.4 04/09/2017 [facility] HEMATOLOGY MCHC 33.6 g/dL 32.0 - 36.0 04/09/2017 [facility] HEMATOLOGY RDW 15.4 % 11.5 - 14.5 04/09/2017 [facility] MCH 29.0 pg 27.0 - 31.0 04/09/2017 [facility] HEMATOLOGY RBC 3.87 M/CMM 4.70 - 6.10 04/09/2017 [facility] HEMATOLOGY Hgb 11.2 g/dL 14.0 - 18.0 04/09/2017 [facility] HEMATOLOGY Platelet 246 K/CMM 133 - 450 04/09/2017 [facility] HEMATOLOGY WBC 8.8 K/CMM 3.7 - 10.4 04/09/2017 [facility] HEMATOLOGY Hct 33.4 % 42.0 - 54.0 04/09/2017 [facility] MCV 86.3 fL 80.0 - 94.0 04/09/2017 [facility] LIPIDS VLDL 33 04/09/2017 [facility] LIPIDS Chol 162 mg/dL <=199 mg/dL 04/09/2017 [facility] LIPIDS Trig 166 mg/dL <=149 mg/dL 04/09/2017 [facility] LIPIDS LDL (Calculated) 100 mg/dL <=99 mg/dL 04/09/2017 [facility] LIPIDS CHD Risk 5.59 4.00 - 7.30 04/09/2017 [facility] LIPIDS HDL 29 mg/dL >=61 mg/dL 04/09/2017 [facility] CARDIAC ENZYMES Troponin-I 0.10 ng/mL 0.00 - 0.40 04/09/2017 [facility] CARDIAC ENZYMES Total CK 83 unit/L 12 - 191 04/09/2017 [facility] CARDIAC ENZYMES CK MB Index 1.9 0.0 - 2.5 04/09/2017 [facility] CARDIAC ENZYMES CK MB 1.6 ng/mL 0.5 - 3.6 04/09/2017 [facility] URINE AND STOOL UA Hyal Cast 32 /LPF 0 - 2 04/08/2017 [facility] URINE AND STOOL UA Sq Epi None Seen 04/08/2017 [facility] URINE AND STOOL UA Urobilinogen <=1.0 mg/dL 0.1 - 1.0 04/08/2017 [facility] URINE AND STOOL UA WBC 2 /HPF 0 - 5 04/08/2017 [facility] URINE AND STOOL UA Leuk Est Negative (04/08/17 4:58 PM) Negative 04/08/2017 [facility] URINE AND STOOL UA Mucus Few /LPF None Seen /LPF 04/08/2017 [facility] URINE AND STOOL UA RBC 1 /HPF 0 - 2 04/08/2017 [facility] URINE AND STOOL UA Bacteria Occasional /HPF None Seen /HPF 04/08/2017 [facility] URINE AND STOOL UA Ketones Negative mg/dL Negative mg/dL 04/08/2017 [facility] URINE AND STOOL UA Blood Negative (04/08/17 4:58 PM) Negative 04/08/2017 [facility] URINE AND STOOL UA Bili Negative *NA* (04/08/17 4:58 PM) Negative 04/08/2017 [facility] URINE AND STOOL UA Glucose Negative mg/dL Negative mg/dL 04/08/2017 [facility] URINE AND STOOL UA Spec Grav 1.015 <=1.030 04/08/2017 [facility] URINE AND STOOL UA Nitrite Negative (04/08/17 4:58 PM) Negative 04/08/2017 [facility] URINE AND STOOL UA Color Yellow *NA* (04/08/17 4:58 PM) Yellow 04/08/2017 [facility] URINE AND STOOL UA Turbidity Slight *ABN* (04/08/17 4:58 PM) Clear 04/08/2017 [facility] URINE AND STOOL UA pH 5.0 5.0 - 8.0 04/08/2017 [facility] URINE AND STOOL UA Protein Negative mg/dL Negative mg/dL 04/08/2017 [facility] HEMATOLOGY INR 1.07 0.85 - 1.17 04/08/2017 [facility] HEMATOLOGY PT 13.9 s 12.0 - 14.7 04/08/2017 [facility] HEMATOLOGY PTT 27.6 s 22.9 - 35.8 04/08/2017 [facility] HEMATOLOGY Platelet 262 K/CMM 133 - 450 04/08/2017 [facility] MPV 9.1 fL 7.4 - 10.4 04/08/2017 [facility] RDW 15.2 % 11.5 - 14.5 04/08/2017 [facility] MCHC 33.3 g/dL 32.0 - 36.0 04/08/2017 [facility] Hct 38.2 % 42.0 - 54.0 04/08/2017 [facility] MCV 86.0 fL 80.0 - 94.0 04/08/2017 [facility] MCH 28.6 pg 27.0 - 31.0 04/08/2017 [facility] Hgb 12.7 g/dL 14.0 - 18.0 04/08/2017 [facility] RBC 4.44 M/CMM 4.70 - 6.10 04/08/2017 [facility] WBC 12.5 K/CMM 3.7 - 10.4 04/08/2017 [facility] CARDIAC ENZYMES Total CK 90 unit/L 12 - 191 04/08/2017 [facility] CARDIAC ENZYMES BNP 124 pg/mL <=100 pg/mL 04/08/2017 [facility] CARDIAC ENZYMES CK MB 1.2 ng/mL 0.5 - 3.6 04/08/2017 [facility] CARDIAC ENZYMES Troponin-I 0.10 ng/mL 0.00 - 0.40 04/08/2017 [facility] CARDIAC ENZYMES CK MB Index 1.3 0.0 - 2.5 04/08/2017 [facility] CHEM PANEL eGFR 22 mL/min/1.73m2 04/08/2017 Result Comment: The eGFR is calculated using the CKD-EPI formula. In most young, healthy individuals the eGFR will be >90 mL/min/1.73m2. The eGFR declines with age. An eGFR of 60-89 may be normal in some populations, particularly the elderly, for whom the CKD-EPI formula has not been extensively validated. Use of the eGFR is not recommended in the following populations: Individuals with unstable creatinine concentrations, including patients and those with serious co-morbid conditions. Patients with extremes in muscle mass or diet. The data above are obtained from the National Kidney Disease Education Program (NKDEP) which additionally recommends that when the eGFR is used in patients with extremes of body mass index for purposes of drug dosing, the eGFR should be multiplied by the estimated BMI. [facility] CHEM PANEL A/G Ratio 1.1 0.7 - 1.6 04/08/2017 [facility] CHEM PANEL Sodium Lvl 139 meq/L 135 - 145 04/08/2017 [facility] CHEM PANEL BUN 38 mg/dL 7 - 22 04/08/2017 [facility] CHEM PANEL Chloride Lvl 104 meq/L 95 - 109 04/08/2017 [facility] CHEM PANEL Potassium Lvl 4.0 meq/L 3.5 - 5.1 04/08/2017 [facility] CHEM PANEL Glucose Lvl 167 mg/dL 70 - 99 04/08/2017 [facility] CHEM PANEL Alk Phos 53 unit/L 39 - 136 04/08/2017 [facility] CHEM PANEL Creatinine Lvl 2.66 mg/dL 0.50 - 1.40 04/08/2017 [facility] CHEM PANEL Calcium Lvl 9.2 mg/dL 8.5 - 10.5 04/08/2017 [facility] CHEM PANEL CO2 27 meq/L 24 - 32 04/08/2017 [facility] CHEM PANEL B/C Ratio 14 6 - 25 04/08/2017 [facility] CHEM PANEL Globulin 3.5 g/dL 2.7 - 4.2 04/08/2017 [facility] CHEM PANEL AGAP 12.0 meq/L 10.0 - 20.0 04/08/2017 [facility] CHEM PANEL Bili Total 0.5 mg/dL 0.2 - 1.3 04/08/2017 [facility] CHEM PANEL Total Protein 7.3 g/dL 6.4 - 8.4 04/08/2017 [facility] CHEM PANEL Albumin Lvl 3.8 g/dL 3.5 - 5.0 04/08/2017 [facility] CHEM PANEL ALT 24 unit/L 0 - 65 04/08/2017 [facility] CHEM PANEL AST 27 unit/L 0 - 37 04/08/2017 [facility] CHEM PANEL Magnesium Lvl 1.8 mg/dL 1.8 - 2.4 04/08/2017 [facility] CHEM PANEL Lipase Lvl 76 unit/L 73 - 393 04/08/2017 [facility] Chest 1view DX Chest 1view DX Clinical Indication: - dizziness, hypotension, chest pain. Comparison: December 08, 2013 FINDINGS: Frontal chest radiograph was obtained. The lungs are adequately inflated and clear. There is no focal airspace consolidation, pleural effusion or pneumothorax. Cardiac silhouette is stable. The aorta is atherosclerotic and tortuous. Median sternotomy wires are noted. The bony structures are unremarkable. IMPRESSION: No acute radiographic abnormality of the thorax. SL: [id number] 04/08/2017 - - Read by: Kristian Rao MD Dictated Date/time: 04/08/17 16:03 Electronically Signed by: Kristian Rao MD 04/08/17 16:04 FINAL REPORT [facility] Brain wo contrast CT Brain wo contrast CT Patient Name: VIDAL DOMINGUEZ : 1935; Age: 81 years y/o Male MR: [id number] Study: Brain wo contrast CT 04/08/2017 2:01 PM [facility] Ordering Physician: Raza Kemp MD Clinical Indication: Acute cognitive change - dizziness, hypotension; Comparison: 12/08/2013 TECHNIQUE: CT images were obtained from the foramen magnum to the vertex without the use of intravenous contrast on a multidetector CT. Coronal and sagittal reconstructions were obtained. CT radiation dose DLP: 992 mGy-cm FINDINGS: There is no evidence of acute intracranial hemorrhage, subacute territorial infarct, mass effect, midline shift, extra-axial fluid collection, hydrocephalus or other acute abnormalities. There is moderate generalized cerebral volume loss with associated ventricular prominence. There are moderate nonspecific supratentorial white matter ill- defined hypodensities likely representing chronic small vessel ischemic changes in this age. There are no chronic territorial infarcts. There are calcifications in the carotid siphons and intradural vertebral arteries. The calvarium, paranasal sinuses and mastoids are unremarkable. If there is further concern for intracranial pathology or acute stroke, further assessment with an MRI of the brain should be considered. IMPRESSION: Moderate age-related changes without evidence of acute intracranial process. SL: [id number] 04/08/2017 - - Read by: Nohemy Grey Dictated Date/time: 04/08/17 15:35 Electronically Signed by: Nohemy Grey 04/08/17 15:37 FINAL REPORT [facility] CARDIAC ENZYMES CK MB 0.7 ng/mL 0.5 - 3.6 12/09/2013 [facility] CARDIAC ENZYMES CK MB Index 0.9 0.0 - 2.5 12/09/2013 [facility] CARDIAC ENZYMES Troponin-T null 0.000 - 0.100 12/09/2013 [facility] CARDIAC ENZYMES Total CK 76 unit/L 12 - 191 12/09/2013 [facility] CARDIAC ENZYMES Troponin-I 0.03 ng/mL 0.00 - 0.40 12/09/2013 [facility] LIPIDS CHD Risk 3.57 4.00 - 7.30 12/09/2013 [facility] LIPIDS Trig 250 mg/dL <=149 mg/dL 12/09/2013 [facility] LIPIDS Chol 157 mg/dL <=199 mg/dL 12/09/2013 [facility] LIPIDS HDL 44 mg/dL >=61 mg/dL 12/09/2013 [facility] LIPIDS LDL (Calculated) 63 mg/dL <=99 mg/dL 12/09/2013 [facility] LIPIDS VLDL 50 12/09/2013 [facility] SPECIAL CHEMISTRY Hgb A1C 8.7 % <=5.6 % 12/09/2013 [facility] CARDIAC ENZYMES Troponin-I 0.03 ng/mL 0.00 - 0.40 12/09/2013 [facility] CARDIAC ENZYMES Troponin-T null 0.000 - 0.100 12/09/2013 [facility] CARDIAC ENZYMES Total CK 82 unit/L 12 - 191 12/09/2013 [facility] CARDIAC ENZYMES CK MB Index 1.3 0.0 - 2.5 12/09/2013 [facility] CARDIAC ENZYMES CK MB 1.1 ng/mL 0.5 - 3.6 12/09/2013 [facility] LIPIDS VLDL 42 12/09/2013 [facility] LIPIDS LDL (Calculated) 82 mg/dL <=99 mg/dL 12/09/2013 [facility] LIPIDS Trig 209 mg/dL <=149 mg/dL 12/09/2013 [facility] LIPIDS Chol 166 mg/dL <=199 mg/dL 12/09/2013 [facility] LIPIDS HDL 42 mg/dL >=61 mg/dL 12/09/2013 [facility] LIPIDS CHD Risk 3.95 4.00 - 7.30 12/09/2013 [facility] SPECIAL CHEMISTRY Hgb A1C 8.9 % <=5.6 % 12/09/2013 [facility] URINE AND STOOL UA RBC 6-10 /HPF 0 - 2 12/09/2013 [facility] URINE AND STOOL UA pH 7.5 5.0 - 8.0 12/09/2013 [facility] URINE AND STOOL UA Turbidity Clear (12/09/13 12:06 AM) Clear 12/09/2013 [facility] URINE AND STOOL UA Protein Negative (12/09/13 12:06 AM) Negative 12/09/2013 [facility] URINE AND STOOL UA Glucose Negative (12/09/13 12:06 AM) Negative 12/09/2013 [facility] URINE AND STOOL UA Spec Grav 1.010 <=1.030 12/09/2013 [facility] URINE AND STOOL UA Blood Trace *ABN* (12/09/13 12:06 AM) Negative 12/09/2013 [facility] URINE AND STOOL UA Ketones Negative *NA* (12/09/13 12:06 AM) Negative 12/09/2013 [facility] URINE AND STOOL UA Urobilinogen 0.2 EU/dL 0.1 - 1.0 12/09/2013 [facility] URINE AND STOOL UA Bili Negative *NA* (12/09/13 12:06 AM) Negative 12/09/2013 [facility] URINE AND STOOL UA Nitrite Negative (12/09/13 12:06 AM) Negative 12/09/2013 [facility] URINE AND STOOL UA Leuk Est Negative (12/09/13 12:06 AM) Negative 12/09/2013 [facility] URINE AND STOOL UA Sq Epi Rare /LPF Few /LPF 12/09/2013 [facility] URINE AND STOOL UA WBC 0-2 /HPF None Seen /HPF 12/09/2013 [facility] URINE AND STOOL UA Color Yellow *NA* (12/09/13 12:06 AM) Yellow 12/09/2013 [facility] CARDIAC ENZYMES Troponin-I 0.03 ng/mL 0.00 - 0.40 12/09/2013 [facility] CHEM PANEL Phosphorus 3.2 mg/dL 2.5 - 4.5 12/09/2013 [facility] CHEM PANEL Magnesium Lvl 1.6 mg/dL 1.8 - 2.4 12/09/2013 [facility] CHEM PANEL B/C Ratio 19 6 - 25 12/09/2013 [facility] CHEM PANEL AGAP 13.6 meq/L 10.0 - 20.0 12/09/2013 [facility] CHEM PANEL A/G Ratio 1.1 0.7 - 1.6 12/09/2013 [facility] CHEM PANEL Globulin 3.2 g/dL 2.0 - 4.0 12/09/2013 [facility] CHEM PANEL eGFR 73 mL/min/1.73m2 12/09/2013 1Result Comment: The eGFR is calculated using the CKD-EPI formula. In most young, healthy individuals the eGFR will be >90 mL/min/1.73m2. The eGFR declines with age. An eGFR of 60-89 may be normal in some populations, particularly the elderly, for whom the CKD-EPI formula has not been extensively validated. Use of the eGFR is not recommended in the following populations: Individuals with unstable creatinine concentrations, including patients and those with serious co-morbid conditions. Patients with extremes in muscle mass or diet. The data above are obtained from the National Kidney Disease Education Program (NKDEP) which additionally recommends that when the eGFR is used in patients with extremes of body mass index for purposes of drug dosing, the eGFR should be multiplied by the estimated BMI. [facility] CHEM PANEL Calcium Lvl 8.8 mg/dL 8.5 - 10.5 12/09/2013 [facility] CHEM PANEL Glucose Lvl 231 mg/dL 70 - 99 12/09/2013 2Interpretive Data: Adult reference range values reflect the clinical guidelines of the [place] [employer]. [facility] CHEM PANEL BUN 19 mg/dL 7 - 22 12/09/2013 [facility] CHEM PANEL Creatinine Lvl 1.0 mg/dL 0.5 - 1.4 12/09/2013 [facility] CHEM PANEL Chloride Lvl 106 meq/L 95 - 109 12/09/2013 [facility] CHEM PANEL Sodium Lvl 142 meq/L 135 - 145 12/09/2013 [facility] CHEM PANEL Potassium Lvl 3.6 meq/L 3.5 - 5.1 12/09/2013 [facility] CHEM PANEL CO2 26 meq/L 24 - 32 12/09/2013 [facility] CHEM PANEL Total Protein 6.6 g/dL 6.4 - 8.4 12/09/2013 [facility] CHEM PANEL Alk Phos 44 unit/L 39 - 136 12/09/2013 [facility] CHEM PANEL Bili Total 0.4 mg/dL 0.2 - 1.3 12/09/2013 [facility] CHEM PANEL ALT 27 unit/L 0 - 65 12/09/2013 [facility] CHEM PANEL Albumin Lvl 3.4 g/dL 3.5 - 5.0 12/09/2013 [facility] CHEM PANEL AST 24 unit/L 0 - 37 12/09/2013 [facility] HEMATOLOGY INR 1.02 0.85 - 1.17 12/09/2013 3Interpretive Data: RECOMMENDED RANGES FOR PROTIME INR: 2.0-3.0 for most medical and surgical thromboembolic states. 2.5-3.5 for artificial heart valves and recurrent embolism. INR SHOULD BE USED ONLY FOR PATIENTS ON STABLE ANTICOAGULANT THERAPY. [facility] HEMATOLOGY PT 13.4 s 12.0 - 14.7 12/09/2013 [facility] HEMATOLOGY PTT 28.4 s 22.9 - 35.8 12/09/2013 4Interpretive Data: Heparin Therapeutic Range: 57 - 92 Seconds [facility] HEMATOLOGY RDW 13.1 % 11.5 - 14.5 12/09/2013 [facility] HEMATOLOGY MPV 9.0 fL 7.4 - 10.4 12/09/2013 [facility] HEMATOLOGY Platelet 256 K/CMM 133 - 450 12/09/2013 [facility] HEMATOLOGY RBC 4.51 M/CMM 4.70 - 6.10 12/09/2013 [facility] HEMATOLOGY WBC 10.5 K/CMM 3.7 - 10.4 12/09/2013 [facility] HEMATOLOGY Hgb 13.5 g/dL 14.0 - 18.0 12/09/2013 [facility] HEMATOLOGY Hct 39.3 % 42.0 - 54.0 12/09/2013 [facility] HEMATOLOGY MCV 87.2 fL 80.0 - 94.0 12/09/2013 [facility] HEMATOLOGY MCH 29.9 pg 27.0 - 31.0 12/09/2013 [facility] HEMATOLOGY MCHC 34.3 g/dL 32.0 - 36.0 12/09/2013 [facility] HEMATOLOGY Plt Morph Normal (12/08/13 10:35 PM) 12/09/2013 [facility] HEMATOLOGY Atypical Lymphs 0.0 % <=0.0 % 12/09/2013 [facility] HEMATOLOGY Monocytes 10.0 % 2.0 - 12.0 12/09/2013 [facility] HEMATOLOGY Bands 0.0 % 0.0 - 11.0 12/09/2013 [facility] HEMATOLOGY Monocytes # 1.0 K/CMM 0.0 - 0.8 12/09/2013 [facility] HEMATOLOGY Lymphocytes 33.0 % 20.0 - 40.0 12/09/2013 [facility] HEMATOLOGY Segs 57.0 % 45.0 - 75.0 12/09/2013 [facility] HEMATOLOGY Lymphocytes # 3.5 K/CMM 1.0 - 5.5 12/09/2013 [facility] HEMATOLOGY Tot Cell Ct 100 12/09/2013 [facility] HEMATOLOGY Anisocyte 1+ *ABN* (12/08/13 10:35 PM) None Seen 12/09/2013 [facility] HEMATOLOGY Segs-Bands # 6.0 K/CMM 1.5 - 8.1 12/09/2013 [facility] Vital Signs Vital Sign Value Date Comments Source Systolic (mm Hg) 153 04/09/2017 [facility] Diastolic (mm Hg) 74 04/09/2017 [facility] Respitory Rate 18 04/09/2017 [facility] Temperature Oral (F) 97.6 F 04/09/2017 [facility] Heart Rate 59 04/09/2017 [facility] Systolic (mm Hg) 162 04/09/2017 [facility] Diastolic (mm Hg) 67 04/09/2017 [facility] Respitory Rate 18 04/09/2017 [facility] Heart Rate 66 04/09/2017 [facility] Temperature Oral (F) 97.8 F 04/09/2017 [facility] Heart Rate 66 04/09/2017 [facility] Systolic (mm Hg) 162 04/09/2017 [facility] Diastolic (mm Hg) 76 04/09/2017 [facility] Respitory Rate 18 04/09/2017 [facility] Temperature Oral (F) 97.6 F 04/09/2017 [facility] Height 172.72 cm 04/08/2017 [facility] BMI Calculated 40.38 04/08/2017 [facility] Weight 120.455 04/08/2017 [facility] Height 70 10/18/2015 [facility] Weight 270 10/18/2015 [facility] Diastolic (mm Hg) 65 12/10/2013 [facility] Systolic (mm Hg) 143 12/10/2013 [facility] Respitory Rate 13 12/10/2013 [facility] Temperature Oral (F) 97.2 F 12/10/2013 [facility] Heart Rate 73 12/10/2013 [facility] Temperature Oral (F) 97.6 F 12/10/2013 [facility] Diastolic (mm Hg) 72 12/10/2013 [facility] Respitory Rate 16 12/10/2013 [facility] Systolic (mm Hg) 150 12/10/2013 [facility] Diastolic (mm Hg) 74 12/10/2013 [facility] Respitory Rate 16 12/10/2013 [facility] Temperature Oral (F) 98.0 F 12/10/2013 [facility] Systolic (mm Hg) 166 12/10/2013 [facility] Heart Rate 73 12/09/2013 [facility] Heart Rate 63 12/09/2013 [facility] BMI Calculated 38.72 12/09/2013 [facility] Height 177.8 cm 12/09/2013 [facility] Weight 122.409 12/09/2013 [facility] Weight 123.182 12/09/2013 [facility] BMI Calculated 38.97 12/09/2013 [facility] Height 177.8 cm 12/09/2013 [facility] Encounters Location Location Details Encounter Type Encounter Number Reason For Visit Attending Provider ADM Date DC Date Status Source [facility] Observation Patient [id number] Nicola Schmidt 12/09/2013 12/10/2013 [facility] - [id number] Demetra Jaramillo, BURR GRINDER: [address] [place] [address], Ph. [id number] Demetra Jaramillo 10/18/2015 [facility] Observation [id number] Edwin Jackson II 04/08/2017 04/10/2017 [facility] Procedures Procedure Code Date Perfomer Comments Source Bilateral replacement of knee joints [id number] [place] CAB[facility] x 3 - Coronary artery bypass grafts x 3 [id number] [facility] Cholecystectomy [id number] [facility] Implant of inflatable penile prosthesis [id number] [facility] Tonsillectomy with adenoidectomy [id number] [facility] Implant of inflatable penile prosthesis [id number] [facility] Tonsillectomy with adenoidectomy [id number] [facility]
--- OUTSIDE RECORDS SUMMARY | 2017-12-29 07:26 | XMS REPORT | Summary of Care ---
Author Organization Unknown Address Unknown Phone Unavailable Encounter [facility](ZONIA) [id number] Date(s): 12/08/13 - 12/10/[address] Discharge Disposition: Home Physician Attending: Nicola Schmidt MD Physician Admitting: Nicola Schmidt MD Reason for Visit TIA Vital Signs 1 2 3 Most recent to oldest [Reference Range]: 177.8 cm (12/09/13 3:36 AM) 177.8 cm (12/08/13 9:32 PM) Height 97.2 DegF (12/10/13 7:00 AM) 97.6 DegF (12/10/13 3:06 AM) 98.0 DegF (12/09/13 11:13 PM) Temperature Oral [96.4-99.1 DegF] 143 mmHg *HI* (12/10/13 7:00 AM) 150 mmHg *HI* (12/10/13 3:06 AM) 166 mmHg *HI* (12/09/13 11:13 PM) Systolic Blood Pressure [90-140 mmHg] 65 mmHg (12/10/13 7:00 AM) 72 mmHg (12/10/13 3:06 AM) 74 mmHg (12/09/13 11:13 PM) Diastolic Blood Pressure [60-90 mmHg] 13 BRMIN *LOW* (12/10/13 7:00 AM) 16 BRMIN (12/10/13 3:06 AM) 16 BRMIN (12/09/13 11:13 PM) Respiratory Rate [14-20 BRMIN] 73 bpm (12/10/13 7:00 AM) 73 bpm (12/09/13 4:33 PM) 63 bpm (12/09/13 11:45 AM) Peripheral Pulse Rate [60-100 bpm] 122.409 kg (10/31/14 3:36 AM) 123.182 kg (12/08/13 9:32 PM) Weight 38.72 m2 (12/09/13 3:36 AM) 38.97 m2 (12/08/13 9:32 PM) Body Mass Index Problem List Condition Effective Dates Status Health Status Informant Acute Resolved sciatica(Confirmed) Arthritis(Confirmed) Resolved CAD (coronary artery Resolved disease)(Confirmed) Depression(Confirmed Resolved ) Diabetes Resolved mellitus(Confirmed) Hypercholesteremia(C Resolved onfirmed) Hypertension(Confirm Resolved ed) Implant(Confirmed)1 Resolved Neuropathy(Confirmed Resolved ) Penile erection Resolved impairment(Confirmed )2 TIA(Confirmed) Resolved 1Penile 2Penile implant Allergies, Adverse Reactions, Alerts Substance Reaction Severity Status NKDA Active Medications aspirin 325 mg tablet 325 mg, 1 tab, Route: PO, Drug form: TAB, ONCE, Dosing Weight 123.182, kg, Prior ity: STAT, Start date: 12/08/13 23:48:00, Stop date: 12/08/13 23:48:00 Notes: Take with food. Start Date: 12/08/13 Stop Date: 12/09/13 Status: Completed aspirin 325 mg tablet, enteric coated 325 mg, 1 tab, Route: PO, Drug form: ECTAB, Daily, Dosing Weight 123.182, kg, St art date: 12/09/13 9:00:00, Duration: 30 day, Stop date: 01/07/14 9:00:00 Notes: (Do Not Crush) Do not crush or chew. Start Date: 12/09/13 Stop Date: 12/10/13 Status: Discontinued aspirin 81 mg tablet, enteric coated 81 mg=1 tab, PO, Daily, # 30 tab, 0 Refill(s) Start Date: 12/10/13 Status: Ordered Bystolic 10 mg, 2 tab, Route: PO, Drug form: TAB, Daily, Dosing Weight 123.182, kg, Start date: 12/09/13 9:00:00, Duration: 30 day, Stop date: 01/07/14 9:00:00 Notes: (same as: Bystolic) Start Date: 12/09/13 Stop Date: 12/10/13 Status: Discontinued CeleBREX 200 mg, 2 cap, Route: PO, Drug form: CAP, Daily, Dosing Weight 123.182, kg, Star t date: 12/09/13 9:00:00, Duration: 30 day, Stop date: 01/07/14 9:00:00 Notes: NSAID. Please check indication. Not for seizure. (Same As: CeleBREX) Start Date: 12/09/13 Stop Date: 12/10/13 Status: Discontinued clonazePAM 1 mg, 1 tab, Route: PO, Drug form: TAB, BID, Dosing Weight 123.182, kg, PRN Anxi ety, Start date: 12/09/13 2:57:00, Stop date: 01/08/14 2:56:00 Notes: (Same As: KlonoPIN) Start Date: 12/09/13 Stop Date: 12/10/13 Status: Discontinued cloNIDine 0.1 mg oral tablet 0.1 mg, Route: PO, Drug form: TAB, ONCE, Dosing Weight 123.182, kg, Priority: ST AT, Start date: 12/09/13 1:38:00, Stop date: 12/09/13 1:38:00 Start Date: 12/09/13 Stop Date: 12/09/13 Status: Completed Dextrose 50% Syringe 12.5 gm, 25 mL, Route: IVP, Drug Form: INJ, Dosing Weight 123.182, kg, PRN, PRN Blood Glucose Results, Start date: 12/09/13 3:07:00, Duration: 30 day, Stop date : 01/08/14 2:06:00 Start Date: 12/09/13 Stop Date: 12/10/13 Status: Discontinued Dextrose 50% Syringe 25 gm, 50 mL, Route: IVP, Drug Form: INJ, Dosing Weight 123.182, kg, PRN, PRN Bl ood Glucose Results, Start date: 12/09/13 3:07:00, Duration: 30 day, Stop date: 01/08/14 2:06:00 Start Date: 12/09/13 Stop Date: 12/10/13 Status: Discontinued ezetimibe-simvastatin 1 tab, Route: PO, Dosing Weight 123.182, kg, Bedtime, Start date: 12/09/13 21:00 :00, Duration: 30 day, Stop date: 01/07/14 21:00:00 Start Date: 12/09/13 Stop Date: 12/09/13 Status: Discontinued furosemide 40 mg oral tablet 40 mg, 1 tab, Route: PO, Drug form: TAB, BID, Dosing Weight 123.182, kg, Start d ate: 12/09/13 9:00:00, Duration: 30 day, Stop date: 01/07/14 17:00:00 Notes: (Same as: Lasix) May cause GI upset. Give with food or milk. Start Date: 12/09/13 Stop Date: 12/10/13 Status: Discontinued glipiZIDE 5 mg, 1 tab, Route: PO, Drug form: TAB, Daily, Dosing Weight 122.409, kg, Priori ty: NOW, Start date: 12/09/13 17:01:00, Duration: 30 day, Stop date: 01/08/14 9: 00:00 Notes: (Same as: Glucotrol) 30 min before meals. Start Date: 12/09/13 Stop Date: 12/10/13 Status: Discontinued glucagon 1 mg, Route: IM, Drug form: PDR/INJ, PRN, Dosing Weight 123.182, kg, PRN Blood G lucose Results, Start date: 12/09/13 3:07:00, Duration: 30 day, Stop date: 01/08 2:06:00 Start Date: 12/09/13 Stop Date: 12/10/13 Status: Discontinued Insulin regular 1 unit, 0.01 mL, Route: SUB-Q, Drug form: SOLN, Bedtime, Dosing Weight 123.182, kg, PRN Blood Glucose Results, Start date: 12/09/13 3:07:00, Duration: 30 day, S top date: 01/08/14 3:06:00 Notes: (Same as: Humulin R) Roll in palms of hands gently; Do not shake vigorou sly. "single patient use only"(Restricted to patients requiring a dose > 60 units) Stable for 28 days at room temperatureExpires in days from _ Date Start Date: 12/09/13 Stop Date: 12/10/13 Status: Discontinued Insulin regular 4 unit, 0.04 mL, Route: SUB-Q, Drug form: SOLN, Bedtime, Dosing Weight 123.182, kg, PRN Blood Glucose Results, Start date: 12/09/13 3:07:00, Duration: 30 day, S top date: 01/08/14 3:06:00 Notes: (Same as: Humulin R) Roll in palms of hands gently; Do not shake vigorou sly. "single patient use only"(Restricted to patients requiring a dose > 60 units) Stable for 28 days at room temperatureExpires in days from _ Date Start Date: 12/09/13 Stop Date: 12/10/13 Status: Discontinued Insulin regular 8 unit, 0.08 mL, Route: SUB-Q, Drug form: SOLN, TID-Before Meals, Dosing Weight 123.182, kg, PRN Blood Glucose Results, Start date: 12/09/13 3:07:00, Duration: 30 day, Stop date: 01/08/14 3:06:00 Notes: (Same as: Humulin R) Roll in palms of hands gently; Do not shake vigorou sly. "single patient use only"(Restricted to patients requiring a dose > 60 units) Stable for 28 days at room temperatureExpires in days from _ Date Start Date: 12/09/13 Stop Date: 12/10/13 Status: Discontinued Insulin regular 6 unit, 0.06 mL, Route: SUB-Q, Drug form: SOLN, TID-Before Meals, Dosing Weight 123.182, kg, PRN Blood Glucose Results, Start date: 12/09/13 3:07:00, Duration: 30 day, Stop date: 01/08/14 3:06:00 Notes: (Same as: Humulin R) Roll in palms of hands gently; Do not shake vigorou sly. "single patient use only"(Restricted to patients requiring a dose > 60 units) Stable for 28 days at room temperatureExpires in days from _ Date Start Date: 12/09/13 Stop Date: 12/10/13 Status: Discontinued Insulin regular 4 unit, 0.04 mL, Route: SUB-Q, Drug form: SOLN, TID-Before Meals, Dosing Weight 123.182, kg, PRN Blood Glucose Results, Start date: 12/09/13 3:07:00, Duration: 30 day, Stop date: 01/08/14 3:06:00 Notes: (Same as: Humulin R) Roll in palms of hands gently; Do not shake vigorou sly. "single patient use only"(Restricted to patients requiring a dose > 60 units) Stable for 28 days at room temperatureExpires in days from _ Date Start Date: 12/09/13 Stop Date: 12/10/13 Status: Discontinued Insulin regular 2 unit, 0.02 mL, Route: SUB-Q, Drug form: SOLN, TID-Before Meals, Dosing Weight 123.182, kg, PRN Blood Glucose Results, Start date: 12/09/13 3:07:00, Duration: 30 day, Stop date: 01/08/14 3:06:00 Notes: (Same as: Humulin R) Roll in palms of hands gently; Do not shake vigorou sly. "single patient use only"(Restricted to patients requiring a dose > 60 units) Stable for 28 days at room temperatureExpires in days from _ Date Start Date: 12/09/13 Stop Date: 12/10/13 Status: Discontinued Insulin regular 10 unit, 0.1 mL, Route: SUB-Q, Drug form: SOLN, TID-Before Meals, Dosing Weight 123.182, kg, PRN Blood Glucose Results, Start date: 12/09/13 3:07:00, Duration: 30 day, Stop date: 01/08/14 3:06:00 Notes: (Same as: Humulin R) Roll in palms of hands gently; Do not shake vigorou sly. "single patient use only"(Restricted to patients requiring a dose > 60 units) Stable for 28 days at room temperatureExpires in days from _ Date Start Date: 12/09/13 Stop Date: 12/10/13 Status: Discontinued Insulin regular 3 unit, 0.03 mL, Route: SUB-Q, Drug form: SOLN, Bedtime, Dosing Weight 123.182, kg, PRN Blood Glucose Results, Start date: 12/09/13 3:07:00, Duration: 30 day, S top date: 01/08/14 3:06:00 Notes: (Same as: Humulin R) Roll in palms of hands gently; Do not shake vigorou sly. "single patient use only"(Restricted to patients requiring a dose > 60 units) Stable for 28 days at room temperatureExpires in days from _ Date Start Date: 12/09/13 Stop Date: 12/10/13 Status: Discontinued Insulin regular 2 unit, 0.02 mL, Route: SUB-Q, Drug form: SOLN, Bedtime, Dosing Weight 123.182, kg, PRN Blood Glucose Results, Start date: 12/09/13 3:07:00, Duration: 30 day, S top date: 01/08/14 3:06:00 Notes: (Same as: Humulin R) Roll in palms of hands gently; Do not shake vigorou sly. "single patient use only"(Restricted to patients requiring a dose > 60 units) Stable for 28 days at room temperatureExpires in days from _ Date Start Date: 12/09/13 Stop Date: 12/10/13 Status: Discontinued labetalol 20 mg, 4 mL, Route: IVP, Drug form: INJ, ONCE, Dosing Weight 123.182, kg, Priori ty: STAT, Start date: 12/09/13 1:00:00, Stop date: 12/09/13 1:00:00 Start Date: 12/09/13 Stop Date: 12/09/13 Status: Completed levothyroxine 25 microgram, 1 tab, Route: PO, Drug form: TAB, Daily, Dosing Weight 123.182, kg , Start date: 12/10/13 6:00:00, Duration: 30 day, Stop date: 01/08/14 6:00:00 Notes: Take 1 hour before or 2 hours after meal; Enteral feeds may interefere wi th the absorption of this medication. (Same as:Levothroid) Start Date: 12/10/13 Stop Date: 12/10/13 Status: Discontinued NexIUM 40 mg, Route: PO, Daily, Dosing Weight 123.182, kg, Start date: 12/09/13 9:00:00 , Duration: 30 day, Stop date: 01/07/14 9:00:00 Start Date: 12/09/13 Stop Date: 12/09/13 Status: Discontinued nitroglycerin 2% ointment 1 inch, Route: TOP, Drug Form: OINT, Dosing Weight 123.182, kg, ONCE, STAT, Star t date: 12/09/13 1:34:00, Stop date: 12/09/13 1:34:00 Notes: 1 gram is approximately 1 inch of nitroglycerin ointment (20 mg NTG pe r gram) (Same as:Nitro-Bid) Start Date: 12/09/13 Stop Date: 12/09/13 Status: Completed Nitrostat 0.4 mg sublingual tablet 0.4 mg, 1 tab, Route: SL, Drug form: TAB, Q5Min, Dosing Weight 123.182, kg, PRN as needed for chest pain, Start date: 12/09/13 2:57:00, Stop date: 01/08/14 1:56 :00 Notes: (Same as:Nitroquick, Nitrostat)"Do Not Crush" Sublingual tablet Start Date: 12/09/13 Stop Date: 12/10/13 Status: Discontinued [place] 7.5/325 oral tablet 1 tab, Route: PO, Drug Form: TAB, Dosing Weight 123.182, kg, Q4H, PRN as needed for pain, Start date: 12/09/13 2:57:00, Stop date: 01/08/14 2:56:00 Notes: Same as [place] 325-7.5mg Do not exceed 4gm/day of acetaminophen. Start Date: 12/09/13 Stop Date: 12/10/13 Status: Discontinued Omnipaque 350mg/ml 85 mL, Route: IVP, Drug Form: SOLN, Dosing Weight 123.182, kg, ONCALL, STAT, Sta rt date: 12/08/13 23:15:00, Duration: 1 doses or times, Dose=2.2ml/kg, Max dose =100ml -- "To be infused by Radiology Staff ONLY" Special Instructions: Dose=2.2ml/kg, Max odzv=435mq -- "To be infused by Radiol ogy Staff ONLY" Start Date: 12/08/13 Stop Date: 12/08/13 Status: Completed Protonix 40 mg, 1 tab, Route: PO, Drug form: ECTAB, Before Dinner, Start date: 12/09/13 1 6:30:00, Duration: 30 day, Stop date: 01/07/14 16:30:00 Notes: Tablet should not be chewed or crushed.(Same as: Protonix) Start Date: 12/09/13 Stop Date: 12/10/13 Status: Discontinued tamsulosin 0.4 mg, 1 cap, Route: PO, Drug form: CAP, Bedtime, Dosing Weight 123.182, kg, St art date: 12/09/13 21:00:00, Duration: 30 day, Stop date: 01/07/14 21:00:00 Notes: (Same As: Flomax) "Do Not Crush" Start Date: 12/09/13 Stop Date: 12/10/13 Status: Discontinued Zetia 10 mg, 1 tab, Route: PO, Drug form: TAB, QPM, Start date: 12/09/13 17:00:00, Dur ation: 30 day, Stop date: 01/07/14 17:00:00 Notes: (Same as: Zetia) Start Date: 12/09/13 Stop Date: 12/10/13 Status: Discontinued Zocor 40 mg, 1 tab, Route: PO, Drug form: TAB, Bedtime, Start date: 12/09/13 21:00:00, Duration: 30 day, Stop date: 01/07/14 21:00:00 Notes: (Same as: Zocor) Start Date: 12/09/13 Stop Date: 12/10/13 Status: Discontinued Results ELECTROLYTES 1 2 3 Most recent to oldest [Reference Range]: 142 mEq/L (12/08/13 10:48 PM) Sodium Lvl [135-145 mEq/L] 3.6 mEq/L (12/08/13 10:48 PM) Potassium Lvl [3.5-5.1 mEq/L] 106 mEq/L (12/08/13 10:48 PM) Chloride Lvl [95-109 mEq/L] 26 mEq/L (12/08/13 10:48 PM) CO2 [24-32 mEq/L] 13.6 mEq/L (12/08/13 10:48 PM) AGAP [10.0-20.0 mEq/L] CHEM PANEL 1 2 3 Most recent to oldest [Reference Range]: 1.0 mg/dL (12/08/13 10:48 PM) Creatinine Lvl [0.5-1.4 mg/dL] 73 mL/min/1.73m2 1 *NA* (12/08/13 10:48 PM) eGFR 19 mg/dL (12/08/13 10:48 PM) BUN [7-22 mg/dL] 19 (12/08/13 10:48 PM) B/C Ratio [6-25] 231 mg/dL 2 *HI* (12/08/13 10:48 PM) Glucose Lvl [70-99 mg/dL] 6.6 g/dL (12/08/13 10:48 PM) Total Protein [6.4-8.4 g/dL] 3.4 g/dL *LOW* (12/08/13 10:48 PM) Albumin Lvl [3.5-5.0 g/dL] 3.2 g/dL (12/08/13 10:48 PM) Globulin [2.0-4.0 g/dL] 1.1 (12/08/13 10:48 PM) A/G Ratio [0.7-1.6] 8.8 mg/dL (12/08/13 10:48 PM) Calcium Lvl [8.5-10.5 mg/dL] 3.2 mg/dL (12/08/13 10:48 PM) Phosphorus [2.5-4.5 mg/dL] 1.6 mg/dL *LOW* (12/08/13 10:48 PM) Magnesium Lvl [1.8-2.4 mg/dL] 27 unit/L (12/08/13 10:48 PM) ALT [0-65 unit/L] 24 unit/L (12/08/13 10:48 PM) AST [0-37 unit/L] 44 unit/L (12/08/13 10:48 PM) Alk Phos [39-136 unit/L] 0.4 mg/dL (12/08/13 10:48 PM) Bili Total [0.2-1.3 mg/dL] 1Result Comment: The eGFR is calculated using [...] from the National Kidney Disease Education Program ( NKDEP) which additionally recommends that when the eGFR is used in patients with extremes of body mass index for purposes of drug dosing, the eGFR should be mul tiplied by the estimated BMI. 2Interpretive Data: Adult reference range values reflect the clinical guidelines of the [place] [employer]. CARDIAC ENZYMES 1 2 3 Most recent to oldest [Reference Range]: 76 unit/L (12/09/13 2:06 PM) 82 unit/L (12/09/13 3:14 AM) Total CK [12-191 unit/L] 0.7 ng/mL (12/09/13 2:06 PM) 1.1 ng/mL (12/09/13 3:14 AM) CK MB [0.5-3.6 ng/mL] 0.9 (12/09/13 2:06 PM) 1.3 (12/09/13 3:14 AM) CK MB Index [0.0-2.5] <0.010 ng/mL (12/09/13 2:06 PM) <0.010 ng/mL (12/09/13 3:14 AM) Troponin-T [0.000-0.100 ng/mL] 0.03 ng/mL (12/09/13 2:06 PM) 0.03 ng/mL (12/09/13 3:14 AM) 0.03 ng/mL (12/08/13 10:48 PM) Troponin-I [0.00-0.40 ng/mL] LIPIDS 1 2 3 Most recent to oldest [Reference Range]: 3.57 *LOW* (12/09/13 2:06 PM) 3.95 *LOW* (12/09/13 3:14 AM) CHD Risk [4.00-7.30] 157 mg/dL (12/09/13 2:06 PM) 166 mg/dL (12/09/13 3:14 AM) Chol [<=199 mg/dL] 250 mg/dL *HI* (12/09/13 2:06 PM) 209 mg/dL *HI* (12/09/13 3:14 AM) Trig [<=149 mg/dL] 44 mg/dL *LOW* (12/09/13 2:06 PM) 42 mg/dL *LOW* (12/09/13 3:14 AM) HDL [>=61 mg/dL] 63 mg/dL (12/09/13 2:06 PM) 82 mg/dL (12/09/13 3:14 AM) LDL (Calculated) [<=99 mg/dL] 50 *NA* (12/09/13 2:06 PM) 42 *NA* (12/09/13 3:14 AM) VLDL SPECIAL CHEMISTRY 1 2 3 Most recent to oldest [Reference Range]: 8.7 % *HI* (12/09/13 2:06 PM) 8.9 % *HI* (12/09/13 3:14 AM) Hgb A1C [<=5.6 %] URINE AND STOOL 1 2 3 Most recent to oldest [Reference Range]: Clear (12/09/13 12:06 AM) UA Turbidity [Clear] Yellow *NA* (12/09/13 12:06 AM) UA Color [Yellow] 7.5 (12/09/13 12:06 AM) UA pH [5.0-8.0] 1.010 (12/09/13 12:06 AM) UA Spec Grav [<=1.030] Negative (12/09/13 12:06 AM) UA Glucose [Negative] Trace *ABN* (12/09/13 12:06 AM) UA Blood [Negative] Negative *NA* (12/09/13 12:06 AM) UA Ketones [Negative] Negative (12/09/13 12:06 AM) UA Protein [Negative] 0.2 EU/dL (12/09/13 12:06 AM) UA Urobilinogen [0.1-1.0 EU/dL] Negative *NA* (12/09/13 12:06 AM) UA Bili [Negative] Negative (12/09/13 12:06 AM) UA Leuk Est [Negative] Negative (12/09/13 12:06 AM) UA Nitrite [Negative] 0-2 /HPF (12/09/13 12:06 AM) UA WBC [None Seen /HPF] 6-10 /HPF *ABN* (12/09/13 12:06 AM) UA RBC [0-2 /HPF] Rare /LPF (12/09/13 12:06 AM) UA Sq Epi [Few /LPF] HEMATOLOGY 1 2 3 Most recent to oldest [Reference Range]: 10.5 K/CMM *HI* (12/08/13 10:35 PM) WBC [3.7-10.4 K/CMM] 4.51 M/CMM *LOW* (12/08/13 10:35 PM) RBC [4.70-6.10 M/CMM] 13.5 g/dL *LOW* (12/08/13 10:35 PM) Hgb [14.0-18.0 g/dL] 39.3 % *LOW* (12/08/13 10:35 PM) Hct [42.0-54.0 %] 87.2 fL (12/08/13 10:35 PM) MCV [80.0-94.0 fL] 29.9 pg (12/08/13 10:35 PM) MCH [27.0-31.0 pg] 34.3 g/dL (12/08/13 10:35 PM) MCHC [32.0-36.0 g/dL] 13.1 % (12/08/13 10:35 PM) RDW [11.5-14.5 %] 256 K/CMM (12/08/13 10:35 PM) Platelet [133-450 K/CMM] 9.0 fL (12/08/13 10:35 PM) MPV [7.4-10.4 fL] 57.0 % (12/08/13 10:35 PM) Segs [45.0-75.0 %] 0.0 % (12/08/13 10:35 PM) Bands [0.0-11.0 %] 33.0 % (12/08/13 10:35 PM) Lymphocytes [20.0-40.0 %] 0.0 % (12/08/13 10:35 PM) Atypical Lymphs [<=0.0 %] 10.0 % (12/08/13 10:35 PM) Monocytes [2.0-12.0 %] 6.0 K/CMM (12/08/13 10:35 PM) Segs-Bands # [1.5-8.1 K/CMM] 3.5 K/CMM (12/08/13 10:35 PM) Lymphocytes # [1.0-5.5 K/CMM] 1.0 K/CMM *HI* (12/08/13 10:35 PM) Monocytes # [0.0-0.8 K/CMM] 100 *NA* (12/08/13 10:35 PM) Tot Cell Ct 1+ *ABN* (12/08/13 10:35 PM) Anisocyte [None Seen] Normal (12/08/13 10:35 PM) Plt Morph 13.4 seconds (12/08/13 10:48 PM) PT [12.0-14.7 seconds] 1.02 3 (12/08/13 10:48 PM) INR [0.85-1.17] 28.4 seconds 4 (12/08/13 10:48 PM) PTT [22.9-35.8 seconds] 3Interpretive Data: RECOMMENDED RANGES FOR PROTIME INR: 2.0-3.0 for most medical and surgical thromboembolic states. 2.5-3.5 for artificial heart valves and recurrent embolism. INR SHOULD BE USED ONLY FOR PATIENTS ON STABLE ANTICOAGULANT THERAPY. 4Interpretive Data: Heparin Therapeutic Range: 57 - 92 Seconds Medications Administered During Your Visit No data available for this section Immunizations Vaccine Date Refusal Reason pneumococcal 23-valent vaccine 06/26/13 Procedures Procedure Type Body Site Date of Procedure Related Diagnosis Implant of inflatable penile prosthesis Tonsillectomy with adenoidectomy Social History Social History Type Response Alcohol Type: Beer, Has alcohol use interfered with work or home life? No, Do you ever drink more than intended? No, Has anyone been hurt or at risk by your drinking? No, Ready to change: No, Concerns about alcohol use in household: No Smoking Status Former smoker, Exposure to Tobacco Smoke None, Cigarette Smoking Last 365 Days No, Reg Smoking Cessation Counseling No Assessment and Plan Extracted from: Title: Stroke Follow Up Author: Naresh Bita Crumpmichael Chow Date: 12/09/13 Arranged for patient to [facility], 2014 at 9:00am with HERB Batista/Dr. Mcneal. Patient is aware and agreeable to appointment. Will remain available as needed. Bita Infante [facility]#[id number] [employer] Extracted from: Title: Clinical Document Author: Jorje Morales MD Date: 12/09/13 Stroke Consult Note Requesting Physician/Service: ED Reason for Consult: r/o TIA HISTORY OF PRESENT ILLNESS: 78M with CAD, HTN, HLD, and DM, presenting with confusion, right facial droop and slurred speech at a clinic appointment with his PCP. His symptoms started at approximately 3pm yesterday. At an outside ED his symptoms had apparently resolved. CT head was negative. He was transferred here for higher level of care. Review of Systems: GEN: No fever, chills, night sweats, weight loss, fatigue EYES: No blurred vision, double vision, eye pain ENT: No decreased hearing, nose bleeding, nasal congestion, sore throat CARDIO: No chest pain, palpitation, orthopnea, dyspnea on exertion PULM: No shortness of breath, cough, wheezing, asthma, sputum, hemoptysis GI: No nausea, vomiting, diarrhea, constipation, Abdominal Pain : No frequency, burning, hematuria, nocturia, hesitancy NEURO: As per HPI ENDO: No weight loss, weight gain, heat intolerance, cold intolerance SKIN: No rash, lesion, itching MUSC: No joint pain, muscle pain, arthritis, back pain Past Medical History: as above Past Surgical History: CABG, cholecystectomy, bilateral knee replacements Family History: heart disease, DM, TIA Social History: former smoker (stopped 50 years ago), occasional alcoholic beverage drinker, denies illicit drug use Medications: bystolic 10mg daily nexium 40mg daily nitrostat 0.4mg prn norco 7.5/325mg prn viibryd 40mg daily vytorin 10/40mg bedtime clonaxepam 1mg bid prn lasix 40mg bid glipizide 5 mg daily levothyroxine 25mcg daily tamsulosin 0.4mg daily Allergies: NKDA Physical Exam: Vitals and Temp: VitalsTmp(F)[id number] 12/09 08:[id number]--- 12/09 03:[id number]--- 12/09 01:51----[id number]--- 12/09 01:06----[id number]--- 12/08 23:45----[id number]--- 24 Hr Tmax: 97.0F (36.11c) at 12/09 03:15Vital Signs are the last 5 in the past 48 hours. HEAD - Normocephalic and atraumatic LUNGS - Clear to auscultation, no rales or rhonchi CVS - Rate rhythm regular, no murmur, no carotid bruit, equal pulses bilaterally ABDOMEN - Soft, non tender, with normal bowel sounds. No hepatosplenomegaly NEUROLOGY: AAO*3 Speech: fluent, comprehension intact, repetition and naming intact crop roller: pupils 3mm equal and briskly reactive, intact visual bashir on confrontation testing, EOMs full, intact sensation V1-V3 bilaterally, mild right facial droop, grossly intact hearing bilaterally, equal palatal elevation, full SCM strength bilaterally, tongue midline Motor: Tone: Normal Power: 5/5 in all groups of muscles in all four limbs Reflexes: 2+ symmetrical bilaterally Plantar: Flexor Drift: absent Sensory: Intact light touch and pin prick sensation Intact vibration and position sense Cerebellar signs: Intact FNT, heel to parker Gait: deferred NIHSS of 1 (mild right facial droop) Labs: 24hr Labs 12/09 0759 Glucose CHD723 H 12/09 0314 Troponin-T<0.010 Total CK82 Troponin-I0.03 CK MB1.1 CK MB Index1.3 12/09 0006 UA ColorYellow UA TurbidityClear UA Spec Grav1.010 UA pH7.5 UA ProteinNegative UA GlucoseNegative UA KetonesNegative UA BiliNegative UA BloodTrace UA Urobilinogen0.2 UA NitriteNegative UA Leuk EstNegative UA RBC6-10 UA WBC0-2 UA Sq EpiRare 12/08 2248 Sodium Zam680 Potassium Lvl3.6 Chloride Tja921 CO226 AGAP13.6 Glucose Uwp092 H Creatinine Lvl1.0 BUN19 B/C Ratio19 Total Protein6.6 Albumin Lvl3.4 L Globulin3.2 A/G Ratio1.1 Calcium Lvl8.8 ALT27 AST24 Alk Phos44 Bili Total0.4 eGFR73 Troponin-I0.03 Magnesium Lvl1.6 L Phosphorus3.2 PT13.4 INR1.02 PTT28.4 12/08 2235 WBC10.5 H RBC4.51 L Hgb13.5 L Hct39.3 L MCV87.2 MCH29.9 MCHC34.3 RDW13.1 Pyfefvzk237 MPV9.0 Segs57.0 Bands0.0 Gqqayuevodu00.0 Atypical Lymphs0.0 Ktvlacymk70.0 Segs-Bands #6.0 Lymphocytes #3.5 Monocytes #1.0 H Plt MorphNormal Tot Cell Ct100 Anisocyte1+ Diagnostic Tests: CTA head/neck: 1. Diffuse atherosclerotic disease without hemodynamically significant stenosis. 2. No intracranial branch occlusions. Assessment: 78M with CAD, HTN, HLD, and DM, presenting with transient confusion, right facial droop and slurred speech. On exam, he still has a very mild right facial droop, although his other deficits have resolved. Given his vascular risk factors, we need to rule out either a TIA or mild stroke. He did not receive IV TPA since he was out of the treatment window on arrival and he has rapidly resolving symptoms . Plan: -admit to Internal Medicine for TIA workup -MRI brain wo contrast -TTE, EKG, Hgb A1c, lipid panel -telemetry -start ASA, lipitor The case was discussed with Dr. Gordillo, the apron cleaner Stroke fellow. Jorje Morales MD PGY2 Neurology Resident MSO [id number] Pager [phone] STROKE ATTENDING I have seen and examined the patient. Furthermore, I have discussed the case with and reviewed the resident's note and agree with the history, exam, assessment and plan. See note below for additions and/or exceptions and my findings. I have personally viewed the patient's radiographic studies and laboratory tests. Exam: normal Imaging: CTH/A: unremarkable MRI/A: pending TTE: Conclusions: Normal LV size with mild concentric hypertrophy and normal systolic function. LVEF 60-65% Stage 1 diastolic dysfunction. Normal RV size and systolic function. Mild posterior mitral annular calcifications. No other significant valvular abnormalities. RV systolic pressure cannot be evaluated accurately. Saline contrast studies are negative for intracardiac shunting. No pericardial effusion. Normal aortic root dimensions. No prior study available. EKG: NSR Labs: Trops: neg Coags: nl LDL: p HgbA1c:p Assessment: 78 yr old with CV risk factors p/w resolved right FD and slurring of speech c/w TIA Plan: TIA, anterior circulation 435.8 Current suspected etiology: to be determined Continue evaluation: Check fasting lipids and HgbA1c Treatment: ASA for stroke prevention, Statin, 30 day event monitor to r/o PAFIB, follow up in stroke clinic in 8-10 weeks. Stable to d/c barring significant abnormality on MRI, plan D/W Dr. Schmidt Hypertension 401.9 Treatment: Start Oral BP meds, BP goals normalize Diabetes type II 250.00 Treatment: SSI, Start oral meds, goal HgbA1c < 7 Hyperlipidemia 272.2 Treatment: Statin Discuss philosophy of care with patient and family, reviewed and updated on plan of care and prognosis Code: 09826 CORE MEASURES: 1) Antithrombotics have been ordered and given before the end of hospital day 2 OR NOT APPLICABLE BECAUSE: 2) Statins have been ordered for LDL > 100 OR NOT APPLICABLE BECAUSE: 3) Rehab assessment has been ordered OR I have assessed the patient and rehab IS NOT APPLICABLE AT THIS TIME BECAUSE: 4) Stroke education: I have discussed with the patient and/or family in detail about 1. the signs and symptoms of stroke; 2. the importance of their early recognition and activation of EMS via 911; 3. stroke risk factors have been clearly identified and communicated to the patient; 4. The importance of taking prescribed medication to treat these risk factors for secondary stroke prevention; and 5. the importance of regular follow- up appointments to prevent stroke has also been emphasized. Susan Davila MD ([place]) [employer] Neu[employer] Pager: [phone] Addendum Stroke Clinic Follow up information: by Rand, He has an appointment made with Lynne Carrera on 01/24/14 at 9am. The clinic is located in [facility] at [address] [place] [address], [address], [place] [address]. Clinic MD on number is [phone]. 12/09/2013 15:34 Extracted from: Title: General Admission H&P * Author: Sanjay Kelly MD Date: 12/09/13 Impression and Plan 78 y/o WM pmh of CAD s/p CABG approx 5 yrs ago, HTN, BPH, HLD, DM type 2, Hypothyroidism, GERD presented with stroke like symptoms that are now improved concerning for possible TIA/stroke. -- TIA/stroke - pt still with slight right facial droop. CT and CTA head negative for acute infarct or significant stenosis. Will send pt for MRI brain and Echo with bubble study. Check HgA1c and lipid panel. Continue with ASA 325mg and statin for now. pending Stroke service recs/eval. -- CAD s/p prior cabg - continue ASA and statin -- HTN - currently elevated, possibly from TIA/stroke. Will restart home regimen of bystolic 10 qday, lasix 40mg bid, pt current med list does not show his previous regimen of clonidine 0.1 q8h and diovan 320mg. Will only give bystolic for now and monitor BP. -- BPH - continue tamsulosin -- DM type 2, with neuropathy - holding home regimen of glipizide and place on ISS for now, pending HgA1c, continue home neurontin -- Hypothyroidism - continue home levothyroxine 20mcg daily DVT ppx - heparin sub q Dispo - pending MRI, Echo and further stroke recsbrandon 1 midnight stay [facility] [place] Hospitalist [place] primary, pager [phone]
--- OUTSIDE RECORDS SUMMARY | 2017-12-29 07:27 | XMS REPORT ---
Author Author [facility] Address Unknown Phone Unavailable Care Team Providers Care Manager Freelance Name Role Phone Unavailable Unavailable Payers Payer Name Policy Type Policy Number Effective Date Expiration Date Problems This patient has no known problems. Allergies, Adverse Reactions, Alerts Allergy Name Allergy Type Status Severity Reaction(s) Onset Date Inactive Date Treating Clinician Comments No Known Allergies DA Active U 2017-12-04 00:00:00 No Known Drug Allergies DA Active U 2010-07-09 00:00:00 Medications This patient has no known medications.
--- OUTSIDE RECORDS SUMMARY | 2017-12-29 07:27 | XMS REPORT | Summary of Care ---
Author Author [facility] Organization [facility] Address Unknown Phone Unavailable Encounter HQ Haim(ZONIA) [id number] Date(s): 04/08/17 - 04/09/17 [facility] [address] [place] [address]- [phone] Encounter Diagnosis Bradycardia, unspecified (Final) - 04/15/17 Hypotension, unspecified (Final) - Dehydration (Final) - Acute kidney failure, unspecified (Final) - Diarrhea, unspecified (Final) - Adverse effect of loop [high-ceiling] diuretics, initial encounter (Final) - Syncope and collapse (Final) - Other specified abnormal findings of blood chemistry (Final) - Chest pain, unspecified (Final) - Type 2 diabetes mellitus with diabetic neuropathy, unspecified (Final) - Atherosclerotic heart disease of [place] coronary artery without angina pectoris (Final) - Hypertensive heart disease with heart failure (Final) - Chronic diastolic (congestive) heart failure (Final) - Hypovolemia (Final) - Pure hypercholesterolemia, unspecified (Final) - Hypothyroidism, unspecified (Final) - Benign prostatic hyperplasia without lower urinary tract symptoms (Final) - Unspecified osteoarthritis, unspecified site (Final) - Major depressive disorder, single episode, unspecified (Final) - Presence of aortocoronary bypass graft (Final) - Personal history of transient ischemic attack (TIA), and cerebral infarction wit hout residual deficits (Final) - Presence of artificial knee joint, bilateral (Final) - Personal history of nicotine dependence (Final) - MCC (current) use of aspirin (Final) - MCC (current) use of oral hypoglycemic drugs (Final) - Discharge Disposition: Home or Self Care Attending Physician: Edwin Cummings DO Admitting Physician: Edwin Cummings DO Vital Signs Most recent to 02 10 3 4 oldest [Reference Range]: Height 172.72 cm (04/08/17 1:49 PM) Current Weight 116.534 kg (04/09/17 5:06 AM) Temperature Oral 97.6 DegF 97.8 DegF 97.6 DegF [96.4-99.1 DegF] (04/09/17 5:22 PM) (04/09/17 12:45 PM) (04/09/17 8:15 AM) Blood Pressure 153/74 mmHg 162/67 mmHg 162/76 mmHg 182/75 mmHg [90-140/60-90 mmHg] *HI* *HI* *HI* *HI* (04/09/17 5:22 PM) (04/09/17 12:45 PM) (04/09/17 11:28 AM) (04/09/17 11:28 AM) Respiratory Rate 18 BRMIN 18 BRMIN 18 BRMIN [14-20 BRMIN] (04/09/17 5:22 PM) (04/09/17 12:45 PM) (04/09/17 8:15 AM) Peripheral Pulse 59 bpm 66 bpm 66 bpm 72 bpm Rate [60-100 bpm] *LOW* (04/09/17 12:45 PM) (04/09/17 11:28 AM) (04/09/17 11:28 AM) (04/09/17 5:22 PM) Weight 120.455 kg (04/08/17 1:49 PM) Body Mass Index 40.38 m2 (04/08/17 1:49 PM) Problem List Condition Effective Dates Status Health Status Informant Acute Resolved sciatica(Confirmed) Arthritis(Confirmed) Resolved CAD (coronary artery Resolved disease)(Confirmed) Depression(Confirmed Resolved ) Diabetes Resolved mellitus(Confirmed) Hypercholesteremia(C Resolved onfirmed) Hypertension(Confirm Resolved ed) Implant(Confirmed)1 Resolved Neuropathy(Confirmed Resolved ) Penile erection Resolved impairment(Confirmed )2 TIA(Confirmed) Resolved 1Penile 2Penile implant Allergies, Adverse Reactions, Alerts Substance Reaction Severity Status NKDA Active Medications acetaminophen 650 mg, 2 tab, Route: PO, Drug form: TAB, Q6H, Dosing Weight 120.455, kg, PRN Pa in 1-3/Temp > 99.5 F, Start date: 04/08/17 16:58:00 [employer], Duration: 30 day, Stop date: 05/08/17 16:57:00 CDT Notes: Do not exceed 4 gm/day. (Same as: Tylenol) Start Date: 04/08/17 Stop Date: 04/09/17 Status: Discontinued amLODIPine 10 mg, 1 tab, Route: PO, Drug form: TAB, Daily, Dosing Weight 120.455, kg, Start date: 04/09/17 13:00:00 [employer]ENE [employer], Duration: 30 day, Stop date: 05/09/17 9:00:00 CDT Notes: (Same as: Norvasc) Start Date: 04/09/17 Stop Date: 04/09/17 Status: Discontinued amLODIPine 10 mg, PO, Daily, 0 Refill(s) Start Date: 04/08/17 Status: Ordered amLODIPine 5 mg oral tablet 5 mg=1 tab, PO, Daily, # 30 tab, 0 Refill(s) Start Date: 04/08/17 Stop Date: 04/09/17 Status: Discontinued aspirin 325 mg tablet, enteric coated 325 mg, 1 tab, Route: PO, Drug form: ECTAB, Daily, Dosing Weight 120.455, kg, St art date: 04/09/17 9:00:00 [employer]ENE [employer], Duration: 30 day, Stop date: 05/08/17 9:00:00 CD T Notes: (Do Not Crush) Do not crush or chew. Start Date: 04/09/17 Stop Date: 04/09/17 Status: Discontinued aspirin 81 mg tablet, enteric coated 81 mg=1 tab, PO, Daily, # 90 tab, 3 Refill(s) Start Date: 04/08/17 Status: Ordered azelastine nasal 0.1% (137 mcg/inh) spray 2 spray, Route: NASAL, Drug Form: SPRY, Dosing Weight 120.455, kg, BID, PRN as n eeded for allergy symptoms, Start date: 04/08/17 19:44:00 [employer]ENE [employer], Duration: 30 day, Stop date: 05/08/17 19:43:00 CDT Notes: (azelastine 137 microgram/inh 34 ml nasal SPR) Non-formulary drug. Same As: Astelin) Start Date: 04/08/17 Stop Date: 04/09/17 Status: Discontinued azelastine nasal 137 mcg/inh spray 2 spray, NASAL, BID, PRN as needed for allergy symptoms, 0 Refill(s) Start Date: 04/08/17 Status: Ordered Benadryl 25 mg, 0.5 mL, Route: IVP, Drug form: INJ, QID, Dosing Weight 120.455, kg, PRN a s needed for itching, Start date: 04/08/17 19:43:00 [employer], Duration: 30 day, Stop date: 05/08/17 19:42:00 CDT Notes: (Same as: Benadryl) Start Date: 04/08/17 Stop Date: 04/09/17 Status: Discontinued Blood Pressure Monitor Upper Arm Misc/Other 1 ea, MISC, ONCE, Provide patient with extra large adult cuff. Diagnosis: 401.1 , # 1 ea, 0 Refill(s) Start Date: 04/09/17 Status: Ordered cholecalciferol 2000 intl units oral tablet 2,000 IntlUnit=1 tab, PO, Daily, # 30 tab, 0 Refill(s) Start Date: 04/08/17 Status: Ordered clonazePAM 1 mg, 1 tab, Route: PO, Drug form: TAB, BID, Dosing Weight 120.455, kg, PRN Anxi ety, Start date: 04/08/17 19:44:00 [employer], Duration: 30 day, Stop date: 05/08/17 19 :43:00 CDT Notes: (Same As: KlonoPIN) Start Date: 04/08/17 Stop Date: 04/09/17 Status: Discontinued Colace 100 mg oral capsule 100 mg, 1 cap, Route: PO, Drug form: CAP, BID, Dosing Weight 120.455, kg, PRN Co nstipation, Start date: 04/08/17 16:58:00 [employer]ENE [employer], Duration: 30 day, Stop date: 04/11 16:57:00 CDT Notes: (Same as: Colace) (Do Not Crush) Start Date: 04/08/17 Stop Date: 04/09/17 Status: Discontinued Dextrose 50% Syringe 12.5 gm, 25 mL, Route: IVP, Drug Form: INJ, Dosing Weight 120.455, kg, PRN, PRN Blood Glucose Results, Start date: 04/08/17 17:02:00 [employer], Duration: 30 day, Stop date: 05/08/17 18:01:00 CDT Start Date: 04/08/17 Stop Date: 04/09/17 Status: Discontinued Dextrose 50% Syringe 25 gm, 50 mL, Route: IVP, Drug Form: INJ, Dosing Weight 120.455, kg, PRN, PRN Bl ood Glucose Results, Start date: 04/08/17 17:02:00 [employer]ENE [employer], Duration: 30 day, Stop d ate: 05/08/17 18:01:00 CDT Start Date: 04/08/17 Stop Date: 04/09/17 Status: Discontinued GI cocktail 30 ml, Route: PO, Drug Form: SUSP, Dosing Weight 120.455, kg, Q4H, PRN Indigesti on, Routine, Start date: 04/08/17 16:58:00 [employer], Duration: 30 day, Stop date: 16:57:00 CDT, DYSPEPSIA Notes: G.I. Cocktail=antacid with simethicone 22.5 mL - lidocaine viscous 7.5 mL Start Date: 04/08/17 Stop Date: 04/09/17 Status: Discontinued glucagon 1 mg, Route: IM, Drug form: PDR/INJ, PRN, Dosing Weight 120.455, kg, PRN Blood G lucose Results, Start date: 04/08/17 17:02:00 [employer], Duration: 30 day, Stop date: 05/08/17 18:01:00 CDT Start Date: 04/08/17 Stop Date: 04/09/17 Status: Discontinued heparin 5,000 unit, 1 mL, Route: SUB-Q, Drug form: INJ, Q12H, Dosing Weight 120.455, kg, Start date: 04/08/17 21:00:00 [employer], Stop date: 05/08/17 9:00:00 CDT Notes: porcine heparin Start Date: 04/08/17 Stop Date: 04/09/17 Status: Discontinued hydrALAZINE 25 mg, 1 tab, Route: PO, Drug form: TAB, Q8H-06, Dosing Weight 120.455, kg, Star t date: 04/09/17 14:00:00 [employer], Duration: 30 day, Stop date: 05/09/17 6:00:00 CDT Notes: (Same as: Apresoline) May interfere w/enteral feedings Take With Food. Start Date: 04/09/17 Stop Date: 04/09/17 Status: Discontinued hydrALAZINE 10 mg, 0.5 mL, Route: IVP, Drug form: INJ, Q6H, Dosing Weight 120.455, kg, PRN E levated BP, Start date: 04/08/17 16:58:00 [employer]ENE [employer], Duration: 30 day, Stop date: 04/11 16:57:00 CDT, SBP>/=160 OR DBP>/=90 Notes: (Same as: Apresoline)Push over 5 minutes Start Date: 04/08/17 Stop Date: 04/09/17 Status: Discontinued influenza virus vaccine, inactivated 0.5 mL, Route: IM, Drug Form: SUSP, ONCALL, Start date: 04/09/17 10:00:00 [employer]YRENE [employer], D uration: 30 day, Stop date: 05/09/17 10:59:00 CDT Notes: (Same as: Fluzone Quadrivalent, Fluarix Quadrivalent)For 3 years of age a nd older (0.5 mL IM)Shake well before use Start Date: 04/09/17 Stop Date: 04/09/17 Status: Discontinued insulin lispro 2 unit, 0.02 mL, Route: SUB-Q, Drug form: SOLN, Bedtime, Dosing Weight 120.455, kg, PRN Blood Glucose Results, Start date: 04/08/17 17:02:00 [employer], Duration: 30 d ay, Stop date: 05/08/17 17:01:00 CDT Notes: (Same as: Humalog ) Roll in palms of hands gently; Do not shake `vigorou sly. "Single Patient Use Only " WASTE: F/P - Black; E - [employer] [address] able for 28 days at room temperature.Expires in days from Da te Start Date: 04/08/17 Stop Date: 04/09/17 Status: Discontinued insulin lispro 1 unit, 0.01 mL, Route: SUB-Q, Drug form: SOLN, Bedtime, Dosing Weight 120.455, kg, PRN Blood Glucose Results, Start date: 04/08/17 17:02:00 [employer]ENE [employer], Duration: 30 d ay, Stop date: 05/08/17 17:01:00 CDT Notes: (Same as: Humalog ) Roll in palms of hands gently; Do not shake `vigorou sly. "Single Patient Use Only " WASTE: F/P - Black; E - [facility] [address] able for 28 days at room temperature.Expires in days from Da te Start Date: 04/08/17 Stop Date: 04/09/17 Status: Discontinued insulin lispro 4 unit, 0.04 mL, Route: SUB-Q, Drug form: SOLN, Bedtime, Dosing Weight 120.455, kg, PRN Blood Glucose Results, Start date: 04/08/17 17:02:00 [employer]YRENE [employer], Duration: 30 d ay, Stop date: 05/08/17 17:01:00 CDT Notes: (Same as: Humalog ) Roll in palms of hands gently; Do not shake `vigorou sly. "Single Patient Use Only " WASTE: F/P - Black; E - [facility] [address] [address] able for 28 days at room temperature.Expires in days from Da te Start Date: 04/08/17 Stop Date: 04/09/17 Status: Discontinued insulin lispro 3 unit, 0.03 mL, Route: SUB-Q, Drug form: SOLN, Bedtime, Dosing Weight 120.455, kg, PRN Blood Glucose Results, Start date: 04/08/17 17:02:00 [employer]ENE [employer], Duration: 30 d ay, Stop date: 05/08/17 17:01:00 CDT Notes: (Same as: Humalog ) Roll in palms of hands gently; Do not shake `vigorou sly. "Single Patient Use Only " WASTE: F/P - Black; E - [facility] [address] able for 28 days at room temperature.Expires in days from Da te Start Date: 04/08/17 Stop Date: 04/09/17 Status: Discontinued insulin lispro 1 unit, 0.01 mL, Route: SUB-Q, Drug form: SOLN, TID-Before Meals, Dosing Weight 120.455, kg, PRN Blood Glucose Results, Start date: 04/08/17 17:02:00 [employer]STYRENE [employer], Durat ion: 30 day, Stop date: 05/08/17 17:01:00 CDT Notes: (Same as: Humalog ) Roll in palms of hands gently; Do not shake `vigorou sly. "Single Patient Use Only " WASTE: F/P - Black; E - [facility] [address] able for 28 days at room temperature.Expires in days from Da te Start Date: 04/08/17 Stop Date: 04/09/17 Status: Discontinued insulin lispro 3 unit, 0.03 mL, Route: SUB-Q, Drug form: SOLN, TID-Before Meals, Dosing Weight 120.455, kg, PRN Blood Glucose Results, Start date: 04/08/17 17:02:00 [employer]YRENE [employer], Durat ion: 30 day, Stop date: 05/08/17 17:01:00 CDT Notes: (Same as: Humalog ) Roll in palms of hands gently; Do not shake `vigorou sly. "Single Patient Use Only " WASTE: F/P - Black; E - [facility] [address] able for 28 days at room temperature.Expires in days from Da te Start Date: 04/08/17 Stop Date: 04/09/17 Status: Discontinued insulin lispro 2 unit, 0.02 mL, Route: SUB-Q, Drug form: SOLN, TID-Before Meals, Dosing Weight 120.455, kg, PRN Blood Glucose Results, Start date: 04/08/17 17:02:00 [employer]ENE [employer], Durat ion: 30 day, Stop date: 05/08/17 17:01:00 CDT Notes: (Same as: Humalog ) Roll in palms of hands gently; Do not shake `vigorou sly. "Single Patient Use Only " WASTE: F/P - Black; E - [facility] [address] able for 28 days at room temperature.Expires in days from Da te Start Date: 04/08/17 Stop Date: 04/09/17 Status: Discontinued insulin lispro 5 unit, 0.05 mL, Route: SUB-Q, Drug form: SOLN, TID-Before Meals, Dosing Weight 120.455, kg, PRN Blood Glucose Results, Start date: 04/08/17 17:02:00 [employer]STYRENE [employer], Durat ion: 30 day, Stop date: 05/08/17 17:01:00 CDT Notes: (Same as: Humalog ) Roll in palms of hands gently; Do not shake `vigorou sly. "Single Patient Use Only " WASTE: F/P - Black; E - [facility] [address] able for 28 days at room temperature.Expires in days from Da te Start Date: 04/08/17 Stop Date: 04/09/17 Status: Discontinued insulin lispro 4 unit, 0.04 mL, Route: SUB-Q, Drug form: SOLN, TID-Before Meals, Dosing Weight 120.455, kg, PRN Blood Glucose Results, Start date: 04/08/17 17:02:00 [employer]STYRENE [employer], Durat ion: 30 day, Stop date: 05/08/17 17:01:00 CDT Notes: (Same as: Humalog ) Roll in palms of hands gently; Do not shake `vigorou sly. "Single Patient Use Only " WASTE: F/P - Black; E - [facility] [address] able for 28 days at room temperature.Expires in days from Da te Start Date: 04/08/17 Stop Date: 04/09/17 Status: Discontinued isosorbide mononitrate 30 mg oral tablet, extended release 30 mg=1 tab, PO, QAM, # 30 tab, 0 Refill(s) Start Date: 04/08/17 Status: Ordered levothyroxine 50 microgram, 1 tab, Route: PO, Drug form: TAB, Q630AM, Dosing Weight 120.455, k g, Start date: 04/09/17 6:30:00 [employer]STYRENE [employer], Duration: 30 day, Stop date: 05/08/17 6:30: 00 CDT Notes: Take 1 hour before or 2 hours after meal; Enteral feeds may interefere wi th the absorption of this medication.(Same as:Levothroid, Synthroid) Start Date: 04/09/17 Stop Date: 04/09/17 Status: Discontinued levothyroxine 50 mcg (0.05 mg) oral tablet 50 microgram=1 tab, PO, Daily, # 30 tab, 0 Refill(s) Start Date: 04/08/17 Status: Ordered Lipitor 40 mg, 1 tab, Route: PO, Drug form: TAB, Bedtime, Dosing Weight 120.455, kg, Sta rt date: 04/08/17 21:00:00 [employer]STYRENE [employer], Duration: 30 day, Stop date: 05/07/17 21:00:00 C DT Notes: (Same as: Lipitor) Start Date: 04/08/17 Stop Date: 04/09/17 Status: Discontinued Lipitor 40 mg oral tablet 40 mg=1 tab, PO, Daily, # 30 tab, 0 Refill(s) Start Date: 04/08/17 Status: Ordered Lopressor 5 mg, 5 mL, Route: IVP, Drug form: INJ, Q6H, Dosing Weight 120.455, kg, PRN Othe r -See Comment, Start date: 04/08/17 16:58:00 [employer]STYRENE [employer], Duration: 30 day, Stop date: 05/08/17 16:57:00 CDT, HR >/=100 OR SBP >/=175 Notes: (Same as: Lopressor)Push over 2 minutes Start Date: 04/08/17 Stop Date: 04/09/17 Status: Discontinued Lyrica 75 mg, 1 cap, Route: PO, Drug form: CAP, Q12H, Dosing Weight 120.455, kg, Start date: 04/08/17 21:00:00 [employer]YRENE [employer], Duration: 30 day, Stop date: 05/08/17 9:00:00 CDT Notes: (Same as: Lyrica) Start Date: 04/08/17 Stop Date: 04/09/17 Status: Discontinued Lyrica 150 mg oral capsule 150 mg=1 cap, PO, BID, # 60 cap, 1 Refill(s) Start Date: 04/08/17 Status: Ordered melatonin 3 mg, 1 tab, Route: PO, Drug form: TAB, Bedtime, Dosing Weight 120.455, kg, PRN as needed for insomnia, Start date: 04/08/17 16:57:00 [employer]ENE [employer], Duration: 30 day, Sto p date: 05/08/17 16:56:00 CDT, .. Notes: (Same as: Melatonin) Start Date: 04/08/17 Stop Date: 04/09/17 Status: Discontinued metFORMIN 1000 mg oral tablet 1,000 mg=1 tab, PO, BID-Meals, # 60 tab, 0 Refill(s) Start Date: 04/08/17 Status: Ordered Metoprolol Succinate ER 50 mg oral tablet, extended release 50 mg=1 tab, PO, Q12H, # 90 tab, 0 Refill(s) Start Date: 04/08/17 Stop Date: 04/09/17 Status: Discontinued morphine Sulfate 2 mg, 1 mL, Route: IVP, Drug form: SOLN, Q4H, Dosing Weight 120.455, kg, PRN Radha st Pain, Start date: 04/08/17 16:58:00 [employer]ENE [employer], Duration: 30 day, Stop date: 8 16:57:00 CDT Start Date: 04/08/17 Stop Date: 04/09/17 Status: Discontinued nitroglycerin SL Tab 0.4 mg, 1 tab, Route: SL, Drug form: TAB, Q5Min, Dosing Weight 120.455, kg, PRN Chest Pain, Start date: 04/08/17 16:58:00 [employer], Duration: 3 doses or times, Stop date: Limited # of times Notes: (Same as:Nitroquick, Nitrostat)"Do Not Crush" Sublingual tablet Start Date: 04/08/17 Stop Date: 04/09/17 Status: Discontinued [place] 7.5/325 oral tablet 1 tab, Route: PO, Drug Form: TAB, Dosing Weight 120.455, kg, Q4H, PRN Pain Score 4-6, Start date: 04/08/17 16:58:00 [employer]ENE [employer], Duration: 30 day, Stop date: 05/08/17 1 6:57:00 CDT Notes: Same as [place] 325-7.5mg Do not exceed 4gm/day of acetaminophen. Start Date: 04/08/17 Stop Date: 04/09/17 Status: Discontinued NS (Bolus) IV 1,000 mL, 1,000 ml/hr, Infuse Over: 1 hr, Route: IV, 1,000, Drug form: INJ, ONCE , Priority: STAT, Dosing Weight 120.455 kg, Start date: 04/08/17 14:01:00 [employer]ST[employer]ENE [employer], S top date: 04/08/17 14:01:00 [employer] Start Date: 04/08/17 Stop Date: 04/08/17 Status: Completed pneumococcal 13-valent vaccine 0.5 mL, Route: IM, Drug Form: INJ, ONCALL, Start date: 04/09/17 10:00:00 [employer]STYRENE [employer], Du ration: 30 day, Stop date: 05/09/17 10:59:00 CDT Notes: Shake well prior to use (Same as: Prevnar 13) Start Date: 04/09/17 Stop Date: 04/09/17 Status: Discontinued predniSONE 20 mg oral tablet 20 mg=1 tab, PO, Daily, 0 Refill(s) Start Date: 04/08/17 Status: Ordered Protonix 40 mg, 1 tab, Route: PO, Drug form: ECTAB, Before Breakfast, Dosing Weight 120.4 55, kg, Priority: NOW, Start date: 04/08/17 16:57:00 [employer], Duration: 30 day, Stop date: 05/08/17 7:30:00 CDT Notes: Tablet should not be chewed or crushed.(Same as: Protonix) Start Date: 04/08/17 Stop Date: 04/09/17 Status: Discontinued Saline Flush 0.9% 10 mL, Route: IVP, Drug Form: INJ, Dosing Weight 122.409, kg, PRN, PRN Line Flus h, Start date: 04/08/17 13:41:00 [employer]ENE [employer], Duration: 30 day, Stop date: 05/08/17 14:4 0:00 CDT Notes: (Same as: BD Posiflush) Start Date: 04/08/17 Stop Date: 04/08/17 Status: Deleted Saline Flush 0.9% 10 ml, Route: IVP, Drug Form: INJ, Dosing Weight 120.455, kg, PRN, PRN Line Flus h, Start date: 04/08/17 16:58:00 [employer]ENE [employer], Duration: 30 day, Stop date: 05/08/17 17:5 7:00 CDT Notes: (Same as: BD Posiflush) Start Date: 04/08/17 Stop Date: 04/09/17 Status: Discontinued Saline Flush 0.9% 10 ml, Route: IVP, Drug Form: INJ, Dosing Weight 120.455, kg, Q12H, Start date: 04/08/17 21:00:00 [employer], Duration: 30 day, Stop date: 05/08/17 9:00:00 CDT Notes: (Same as: BD Posiflush) Start Date: 04/08/17 Stop Date: 04/09/17 Status: Discontinued Sodium Chloride 0.9% IV 1,000 mL 1,000 mL, Rate: 40 ml/hr, Infuse over: 25 hr, Route: IV, Dosing Weight 120.455 k g, Total Volume: 1,000, Start date: 04/08/17 19:40:00 [employer], Duration: 30 day, Sto p date: 05/08/17 19:39:00 CDT, 2.44, m2 Start Date: 04/08/17 Stop Date: 04/09/17 Status: Discontinued Tessalon Perles 100 mg, 1 cap, Route: PO, Drug form: CAP, TID, Dosing Weight 120.455, kg, PRN Co ugh, Start date: 04/08/17 19:44:00 [employer], Duration: 30 day, Stop date: 05/08/17 19 :43:00 CDT Notes: (Same As: Tessalon Perles)"Do Not Crush" Start Date: 04/08/17 Stop Date: 04/09/17 Status: Discontinued Tessalon Perles 100 mg oral capsule 100 mg=1 cap, PO, TID, PRN as needed for cough, # 30 cap, 0 Refill(s) Start Date: 04/08/17 Stop Date: 04/18/17 Status: Ordered tramadol 50 mg oral tablet 50 mg=1 tab, PO, Q6H, PRN Pain Score 1-5, 0 Refill(s) Start Date: 04/08/17 Status: Ordered Tresiba FlexTouch 200 units/mL subcutaneous solution 80 unit, SUB-Q, Daily, 0 Refill(s) Start Date: 04/08/17 Status: Ordered valsartan 40 mg, 1 tab, Route: PO, Drug form: TAB, Daily, Dosing Weight 120.455, kg, Start date: 04/09/17 13:00:00 [employer], Duration: 30 day, Stop date: 05/09/17 9:00:00 CDT Notes: Same as Diokristie Start Date: 04/09/17 Stop Date: 04/09/17 Status: Discontinued valsartan 40 mg oral tablet 40 mg=1 tab, PO, Daily, HOLD IF SBP LESS THAN OR EQUAL TO 120, # 30 tab, 2 Refil l(s), Pharmacy: [facility]/pharmacy #[id number] Start Date: 04/09/17 Stop Date: 07/08/17 Status: Ordered valsartan 80 mg oral tablet 80 mg=1 tab, PO, Daily, # 30 tab, 0 Refill(s) Start Date: 04/08/17 Stop Date: 04/09/17 Status: Discontinued Viibryd 40 mg oral tablet 40 mg=1 tab, PO, Daily, 0 Refill(s) Start Date: 04/08/17 Stop Date: 04/09/17 Status: Discontinued Zofran 4 mg, 2 mL, Route: IV, Drug form: INJ, Q4H, Dosing Weight 120.455, kg, PRN Nause a, Start date: 04/08/17 16:58:00 [employer], Duration: 30 day, Stop date: 05/08/17 16:5 7:00 CDT Notes: (Same as: Zofran) MEDICATION WASTE Product Size: 4 mgProduct Was percy: 0 mg Start Date: 04/08/17 Stop Date: 04/09/17 Status: Discontinued Results ELECTROLYTES 1 2 3 Most recent to oldest [Reference Range]: 142 mEq/L (04/09/17 3:00 AM) 139 mEq/L (04/08/17 2:20 PM) Sodium Lvl [135-145 mEq/L] 3.6 mEq/L (04/09/17 3:00 AM) 4.0 mEq/L (04/08/17 2:20 PM) Potassium Lvl [3.5-5.1 mEq/L] 106 mEq/L (04/09/17 3:00 AM) 104 mEq/L (04/08/17 2:20 PM) Chloride Lvl [95-109 mEq/L] 27 mEq/L (04/09/17 3:00 AM) 27 mEq/L (04/08/17 2:20 PM) CO2 [24-32 mEq/L] 12.6 mEq/L (04/09/17 3:00 AM) 12.0 mEq/L (04/08/17 2:20 PM) AGAP [10.0-20.0 mEq/L] CHEM PANEL 1 2 3 Most recent to oldest [Reference Range]: 1.88 mg/dL *HI* (04/09/17 3:00 AM) 2.66 mg/dL *HI* (04/08/17 2:20 PM) Creatinine Lvl [0.50-1.40 mg/dL] 33 mL/min/1.73m2 1 *NA* (04/09/17 3:00 AM) 22 mL/min/1.73m2 2 *NA* (04/08/17 2:20 PM) eGFR 35 mg/dL *HI* (04/09/17 3:00 AM) 38 mg/dL *HI* (04/08/17 2:20 PM) BUN [7-22 mg/dL] 19 (04/09/17 3:00 AM) 14 (04/08/17 2:20 PM) B/C Ratio [6-25] 143 mg/dL *HI* (04/09/17 3:00 AM) 167 mg/dL *HI* (04/08/17 2:20 PM) Glucose Lvl [70-99 mg/dL] 6.1 g/dL *LOW* (04/09/17 3:00 AM) 7.3 g/dL (04/08/17 2:20 PM) Total Protein [6.4-8.4 g/dL] 3.2 g/dL *LOW* (04/09/17 3:00 AM) 3.8 g/dL (04/08/17 2:20 PM) Albumin Lvl [3.5-5.0 g/dL] 2.9 g/dL (04/09/17 3:00 AM) 3.5 g/dL (04/08/17 2:20 PM) Globulin [2.7-4.2 g/dL] 1.1 (04/09/17 3:00 AM) 1.1 (04/08/17 2:20 PM) A/G Ratio [0.7-1.6] 8.6 mg/dL (04/09/17 3:00 AM) 9.2 mg/dL (04/08/17 2:20 PM) Calcium Lvl [8.5-10.5 mg/dL] 3.5 mg/dL (04/09/17 3:00 AM) Phosphorus [2.5-4.5 mg/dL] 1.8 mg/dL (04/09/17 3:00 AM) 1.8 mg/dL (04/08/17 2:20 PM) Magnesium Lvl [1.8-2.4 mg/dL] 20 unit/L (04/09/17 3:00 AM) 24 unit/L (04/08/17 2:20 PM) ALT [0-65 unit/L] 18 unit/L (04/09/17 3:00 AM) 27 unit/L (04/08/17 2:20 PM) AST [0-37 unit/L] 46 unit/L (04/09/17 3:00 AM) 53 unit/L (04/08/17 2:20 PM) Alk Phos [39-136 unit/L] 0.3 mg/dL (04/09/17 3:00 AM) 0.5 mg/dL (04/08/17 2:20 PM) Bili Total [0.2-1.3 mg/dL] 76 unit/L (04/08/17 2:20 PM) Lipase Lvl [73-393 unit/L] 0.8 mMol/L (04/09/17 3:00 AM) Lactic Acid Lvl [0.5-2.2 mMol/L] 1Result Comment: The eGFR is calculated using [...] be mul tiplied by the estimated BMI. 2Result Comment: The eGFR is calculated using the [...] be mul tiplied by the estimated BMI. CARDIAC ENZYMES 1 2 3 Most recent to oldest [Reference Range]: 60 unit/L (04/09/17 3:00 AM) 83 unit/L (04/08/17 8:00 PM) 90 unit/L (04/08/17 2:20 PM) Total CK [12-191 unit/L] 1.6 ng/mL (04/08/17 8:00 PM) 1.2 ng/mL (04/08/17 2:20 PM) CK MB [0.5-3.6 ng/mL] 1.9 (04/08/17 8:00 PM) 1.3 (04/08/17 2:20 PM) CK MB Index [0.0-2.5] 0.09 ng/mL (04/09/17 3:00 AM) 0.10 ng/mL (04/08/17 8:00 PM) 0.10 ng/mL (04/08/17 2:20 PM) Troponin-I [0.00-0.40 ng/mL] 124 pg/mL *HI* (04/08/17 2:20 PM) BNP [<=100 pg/mL] LIPIDS 1 2 3 Most recent to oldest [Reference Range]: 5.59 (04/09/17 3:00 AM) CHD Risk [4.00-7.30] 162 mg/dL (04/09/17 3:00 AM) Chol [<=199 mg/dL] 166 mg/dL *HI* (04/09/17 3:00 AM) Trig [<=149 mg/dL] 29 mg/dL *LOW* (04/09/17 3:00 AM) HDL [>=61 mg/dL] 100 mg/dL *HI* (04/09/17 3:00 AM) LDL (Calculated) [<=99 mg/dL] 33 *NA* (04/09/17 3:00 AM) VLDL URINE AND STOOL 1 2 3 Most recent to oldest [Reference Range]: Slight *ABN* (04/08/17 4:58 PM) UA Turbidity [Clear] Yellow *NA* (04/08/17 4:58 PM) UA Color [Yellow] 5.0 (04/08/17 4:58 PM) UA pH [5.0-8.0] 1.015 (04/08/17 4:58 PM) UA Spec Grav [<=1.030] Negative mg/dL *NA* (04/08/17 4:58 PM) UA Glucose [Negative mg/dL] Negative (04/08/17 4:58 PM) UA Blood [Negative] Negative mg/dL *NA* (04/08/17 4:58 PM) UA Ketones [Negative mg/dL] Negative mg/dL (04/08/17 4:58 PM) UA Protein [Negative mg/dL] <=1.0 mg/dL *NA* (04/08/17 4:58 PM) UA Urobilinogen [0.1-1.0 mg/dL] Negative *NA* (04/08/17 4:58 PM) UA Bili [Negative] Negative (04/08/17 4:58 PM) UA Leuk Est [Negative] Negative (04/08/17 4:58 PM) UA Nitrite [Negative] 2 /HPF (04/08/17 4:58 PM) UA WBC [0-5 /HPF] 1 /HPF (04/08/17 4:58 PM) UA RBC [0-2 /HPF] Occasional /HPF *NA* (04/08/17 4:58 PM) UA Bacteria [None Seen /HPF] None Seen *NA* (04/08/17 4:58 PM) UA Sq Epi 32 /LPF *HI* (04/08/17 4:58 PM) UA Hyal Cast [0-2 /LPF] Few /LPF *NA* (04/08/17 4:58 PM) UA Mucus [None Seen /LPF] HEMATOLOGY 1 2 3 Most recent to oldest [Reference Range]: 8.8 K/CMM (04/09/17 3:00 AM) 12.5 K/CMM *HI* (04/08/17 3:46 PM) WBC [3.7-10.4 K/CMM] 3.87 M/CMM *LOW* (04/09/17 3:00 AM) 4.44 M/CMM *LOW* (04/08/17 3:46 PM) RBC [4.70-6.10 M/CMM] 11.2 g/dL *LOW* (04/09/17 3:00 AM) 12.7 g/dL *LOW* (04/08/17 3:46 PM) Hgb [14.0-18.0 g/dL] 33.4 % *LOW* (04/09/17 3:00 AM) 38.2 % *LOW* (04/08/17 3:46 PM) Hct [42.0-54.0 %] 86.3 fL (04/09/17 3:00 AM) 86.0 fL (04/08/17 3:46 PM) MCV [80.0-94.0 fL] 29.0 pg (04/09/17 3:00 AM) 28.6 pg (04/08/17 3:46 PM) MCH [27.0-31.0 pg] 33.6 g/dL (04/09/17 3:00 AM) 33.3 g/dL (04/08/17 3:46 PM) MCHC [32.0-36.0 g/dL] 15.4 % *HI* (04/09/17 3:00 AM) 15.2 % *HI* (04/08/17 3:46 PM) RDW [11.5-14.5 %] 9.3 fL (04/09/17 3:00 AM) 9.1 fL (04/08/17 3:46 PM) MPV [7.4-10.4 fL] 246 K/CMM (04/09/17 3:00 AM) 262 K/CMM (04/08/17 3:46 PM) Platelet [133-450 K/CMM] 63.5 % (04/09/17 3:00 AM) Segs [45.0-75.0 %] 27.2 % (04/09/17 3:00 AM) Lymphocytes [20.0-40.0 %] 7.5 % (04/09/17 3:00 AM) Monocytes [2.0-12.0 %] 1.1 % (04/09/17 3:00 AM) Eosinophils [0.0-4.0 %] 0.7 % (04/09/17 3:00 AM) Basophils [0.0-1.0 %] 5.6 K/CMM (04/09/17 3:00 AM) Segs-Bands # [1.5-8.1 K/CMM] 2.4 K/CMM (04/09/17 3:00 AM) Lymphocytes # [1.0-5.5 K/CMM] 0.7 K/CMM (04/09/17 3:00 AM) Monocytes # [0.0-0.8 K/CMM] 0.1 K/CMM (04/09/17 3:00 AM) Eosinophils # [0.0-0.5 K/CMM] 0.1 K/CMM (04/09/17 3:00 AM) Basophils # [0.0-0.2 K/CMM] 13.9 seconds (04/08/17 3:46 PM) PT [12.0-14.7 seconds] 1.07 (04/08/17 3:46 PM) INR [0.85-1.17] 27.6 seconds (04/08/17 3:46 PM) PTT [22.9-35.8 seconds] Immunizations Given and Recorded Vaccine Date Status Refusal Reason pneumococcal 23-valent vaccine 06/26/13 Given Procedures Procedure Date Related Diagnosis Body Site Status Bilateral replacement of knee joints Completed CABG x 3 - Coronary artery bypass grafts x 3 Completed Cholecystectomy Completed Implant of inflatable penile prosthesis Completed Tonsillectomy with adenoidectomy Completed Social History Social History Type Response Alcohol Type Beer. Alcohol use interferes with work or home: No. Drinks more than intended: No. Others hurt by drinking: No. Ready to change: No. Household alcohol concerns: No. Smoking Status Former smoker; Ready to change: No; Concerns about tobacco use in household: No; Exposure to Tobacco Smoke None; Cigarette Smoking Last 365 Days No; Reg Smoking Cessation Counseling No1 entered on: 04/08/17 1denies at this time. quit smoking 50 years ago Assessment and Plan Extracted from: Title: code 44 Author: Yamilka Collier RN Date: 04/09/[address] Jackson regarding lack of medical necessity for inpatient stay. Attending in agreement with conversion from inpatient to outpatient with observation services per condition code 44. Dr Munguia, as UR committee manufacturing sales representative, is in agreement to convert to OBS status per condition code 44. Extracted from: Title: General Admission H&P * Author: Edwin Cummings DO Date: 04/08/17 Impression and Plan Symptomatic bradycardia with hypotension most likely as a result of metoprolol complicated with severe dehydration Acute kidney injury with severe dehydration as a result of diarrhea and diuretic medication of Lasix Vasovagal syncope most likely is a combination effect of bradycardia and hypotension as reasons noted above Abnormal troponin with known history of coronary disease status post CABG in the past. Most likely troponin is elevated due to renal insufficiency. Diarrhea Type 2 diabetes Chronic hypertension History of BPH Plan: Monitor the patient on hall monitor and serial neuro checks. Keep the patient on pacing pads in case this is intermittently needed. PT OT evaluate and treat Follow-up serial cardiac enzymes, cardiology consult, echocardiogram Start the patient on aspirin 325 p.o. daily Put the patient on heparin per VT E recommendations As needed nitroglycerin and morphine as needed for chest pain Check fasting lipid profile in the morning Give gentle IV fluids, monitor patient blood pressure very carefully, use as needed antihypertensive medications as needed Put the patient on starting-dose sliding scale NovoLog, 1800 ADA diet restrictions, monitor blood glucoses appropriately, follow-up hemoglobin A1c in the a.m. Check stool for C. difficile and O&P. If negative patient may warrant antidiarrheal agents Disposition: Monitor the patient on telemetry status, await cardiology evaluation and workup. The patient is cleared and stable most likely can be discharged home.
--- OUTSIDE RECORDS SUMMARY | 2017-12-29 07:27 | XMS REPORT | Encounter Summary ---
Author Organization Unknown Address [address] [place] [id number] Phone [phone] Reason for Visit Flu Immunization Instructions 1. Influenza vaccine needed Fluzone High-Dose (PF) 180 mcg/0.5 mL intramuscular syringe Discussion Note: None recorded. Patient educational handouts: No information available. Plan of Care Reminders Provider Appointments None recorded. Lab None recorded. Referral None recorded. Procedures None recorded. Surgeries None recorded. Imaging None recorded. Medications Name Start Date amlodipine 5 mg tablet azelastine 137 mcg (0.1 %) nasal spray aerosol azithromycin 250 mg tablet benzonatate 200 mg capsule bupropion HCl XL 150 mg 24 hr tablet, extended release Bystolic 20 mg tablet cefdinir 300 mg capsule celecoxib 200 mg capsule cephalexin 500 mg capsule Cheratussin AC 10 mg-100 mg/5 mL oral liquid ciprofloxacin 500 mg tablet clonazepam 1 mg tablet clonidine HCl 0.1 mg tablet escitalopram 10 mg tablet escitalopram 20 mg tablet felodipine ER 10 mg tablet,extended release 24 hr finasteride 5 mg tablet fluconazole 100 mg tablet fluticasone 50 mcg/actuation nasal spray,suspension Fluzone High-Dose (PF) 180 mcg/0.5 mL intramuscular syringe IMMUNIZATION GIVEN furosemide 40 mg tablet gabapentin 100 mg capsule TAKE ONE (1) CAPSULE(S) BY MOUTH THREE TIMES A DAY FOR DAYS 1-3, THEN 2 CAPSULES 3 TIMES A DAY DAYS 4-6, THEN 3 CAPSULES 3 TIMES A DAY DAYS glipizide 5 mg tablet TAKE ONE (1) TABLET(S) BY MOUTH DAILY. glyburide 5 mg tablet hydrochlorothiazide 25 mg tablet hydrocodone 7.5 mg-acetaminophen 325 mg tablet hydrocodone-homatropine 5 mg-1.5 mg/5 mL syrup inControl Pen Needle 31 gauge x 3/16" Klor-Con 10 mEq tablet,extended release Levemir FlexTouch 100 unit/mL (3 mL) subcutaneous insulin pen levofloxacin 500 mg tablet levofloxacin 750 mg tablet levothyroxine 25 mcg tablet Lyrica 150 mg capsule Lyrica 75 mg capsule metformin 1,000 mg tablet TAKE ONE (1) TABLET(S) BY MOUTH TWICE A DAY. metformin 500 mg tablet TAKE ONE (1) TABLET(S) BY MOUTH ONCE A DAY. metformin ER 500 mg tablet,extended release 24hr methocarbamol 750 mg tablet methylphenidate 20 mg tablet metoprolol succinate ER 25 mg tablet,extended release 24 hr TAKE ONE (1) TABLET(S) BY MOUTH DAILY. mupirocin 2 % topical ointment APPLY ONCE TO THREE TIMES A DAY TO WOUND. Nexium 40 mg capsule,delayed release Niaspan 1,000 mg tablet,extended release Nitrostat 0.4 mg sublingual tablet PRASCION 10 %-5 % (w/w) topical cleanser Prevnar 13 (PF) 0.5 mL intramuscular syringe IMMUNIZATION ADMINISTERED ramipril 10 mg capsule Spiriva with HandiHaler 18 mcg and inhalation capsules tamsulosin 0.4 mg capsule testosterone cypionate 200 mg/mL intramuscular oil valsartan 320 mg tablet Viibryd 40 mg tablet Vytorin 10 mg-20 mg tablet Vytorin 10 mg-40 mg tablet TAKE ONE (1) TABLET(S) BY MOUTH AT BEDTIME. Medications Administered None recorded. Vitals Height Weight BMI 5 ft 10 in 270 lbs 38.7 Lab Results None recorded. Allergies Name Reaction Severity Onset NKDA Problems None recorded. Procedures None recorded. Vaccine List Vaccine Type influenza, high dose seasonal 10/18/20150.5 mL influenza, seasonal, injectable 01/14/2012 zoster 01/14/2012 Social History None recorded. Past Encounters 10/18/2015 Influenza Vaccine Needed Demetra Jaramillo, [employer] OPERATOR: [id number] [place] [address], Ph. History of Present Illness Immunization Reported By: Patient Review of Systems None recorded. Physical Exam Immunization General Appearance: General: well-developed, well-nourished, no acute distress
--- NOTE | 2017-12-29 13:15 | Operative Report ---
DATE OF PROCEDURE: December 29, 2017 INDICATIONS: Coronary artery disease, abnormal stress test. PROCEDURES PERFORMED 1. Left heart catheterization, selective coronary angiography, left ventriculography. 2. Selective cannulation of 1 arterial and 3 venous bypass conduits. 3. Deployment of right groin Mynx closure device. COMPLICATIONS: None. RECOMMENDATIONS: Medical therapy, consideration for external counterpulsations. Access was obtained in the right femoral artery. A 6-Romanian sheath was placed. Diagnostic coronary angiogram revealed heavily calcified but patent left main. Left anterior descending artery was occluded in its ostium. Ramus intermedius is a large vessel with diffuse 30% to 50% calcified stenosis. Circumflex had mild disease. Obtuse marginal branch was completely occluded. Right coronary artery was completely occluded. Left internal mammary artery was not used for bypass. Saphenous vein bypass graft to left anterior descending artery was occluded. Saphenous vein bypass graft to obtuse marginal was widely patent. Saphenous vein bypass graft to right posterior descending artery was widely patent. LV ejection fraction 65%. LV end-diastolic pressure 12. No gradient across the aortic valve on pullback. Right groin repaired using a Mynx closure device. Patient discharged home same day. Job#: [id number]
== END | disposition home or self-care (01) ==
LOC: CATH LAB 07:23
PROVIDERS: ATTEND Internal Medicine Interventional Cardiology
DX: I25.810 Atherosclerosis of coronary artery bypass graft(s) without angina pectoris (principal); I25.82 Chronic total occlusion of coronary artery; R94.39 Abnormal result of other cardiovascular function study; I10 Essential (primary) hypertension; E11.9 Type 2 diabetes mellitus without complications; Z01.812 Encounter for preprocedural laboratory examination; Z79.82 Long term (current) use of aspirin; Z79.4 Long term (current) use of insulin; Z68.41 Body mass index [BMI] 40.0-44.9, adult; Z95.1 Presence of aortocoronary bypass graft; Z82.49 Family history of ischemic heart disease and other diseases of the circulatory system; Z82.3 Family history of stroke
CPT/HCPCS: 36415; 80053; 80061; 85025; 85610; 93459; C1769; J2001; J2250; J7030; Q9967

== ENCOUNTER → 2018-06-14 | Outpatient (CLI) | payer MEDICARE, BC ==
[~2018-06-14] MED LIST changes: -ALPRAZOLAM 0.5 MG TAB ONE; -DIPHENHYDRAMINE HCL 25 MG CAP ONE; -FENTANYL CITRATE/PF 100MCG/2 ML INJ ONE; -HEPARIN SOD/SOD CHLORIDE 2,000 ML ONE; -IOPAMIDOL 370 MG/ML 200 ML INFUS..BTL INJ ONE; -LIDOCAINE HCL 2% LOCAL 20 ML VIAL ONE; -MIDAZOLAM HCL 2 MG/2 ML VIAL ONE; -SODIUM CHLORIDE 0.9% 1000ML 1,000 ML ONE; -VERAPAMIL HCL 2.5 MG/ML 2 ML VIAL ONE
--- NOTE | 2018-06-14 16:27 | Diagnostic Imaging Report ---
EXAMINATION: PA and lateral views of the chest. COMPARISON: CT chest without contrast 04/16/2012 CLINICAL HISTORY: Cough DISCUSSION: The lungs are well-inflated. No focal airspace consolidation, pleural effusion, or pneumothorax. Tortuous thoracic aorta with atherosclerotic calcification. Surgical changes of median sternotomy. Normal heart size. No overt pulmonary edema. No acute osseous abnormality. Multilevel degenerative disc changes of the thoracic spine. IMPRESSION: No acute cardiopulmonary abnormalities. Signed by: Dr. Nate Pedersen M.D. on 06/14/2018 4:24 PM
== END ==
LOC: RAD 15:36
PROVIDERS: ATTEND Internal Medicine
DX: R05 Cough (principal)
CPT/HCPCS: 71046

== ENCOUNTER → 2018-09-09 | Outpatient (CLI) | payer MEDICARE, OTHER, BC ==
--- NOTE | 2018-09-09 13:55 | Diagnostic Imaging Report ---
EXAMINATION: CHEST 2 VIEWS INDICATION: Cough COMPARISON: Chest radiograph of 06/14/2018 FINDINGS: LINES/TUBES:Sternotomy wires intact. LUNGS:The lungs are mildly hyperinflated. There are linear opacities at the left greater than right lung bases. PLEURA:No pleural effusion or pneumothorax. MEDIASTINUM:The cardiomediastinal silhouette appears normal in size and shape. Atherosclerotic calcifications of the tortuous thoracic aorta. BONES/SOFT TISSUES:No acute osseous injury. Degenerative changes of the visualized spine with flowing osteophytes. ABDOMEN:No free air under the diaphragm. IMPRESSION: Mildly hyperinflated lungs with bibasilar subsegmental atelectasis. No focal pneumonia or pulmonary edema. Signed by: Lobo Davila MD on 09/09/2018 1:52 PM
== END ==
LOC: RAD 12:21
PROVIDERS: ATTEND Internal Medicine
DX: R05 Cough (principal)
CPT/HCPCS: 71046

== ENCOUNTER → 2018-10-26 | Outpatient (CLI) | payer MEDICARE ==
--- NOTE | 2018-10-26 16:13 | Diagnostic Imaging Report ---
Chest, 2 views, 10/26/2018. History: Cough, bronchitis. Comparison: 09/09/2018. Findings: The cardiomediastinal silhouette and pulmonary vasculature are within normal limits. Calcification of the thoracic aorta is present. The lungs are clear without evidence of consolidation or pleural effusion. Linear opacities are present at the lung bases. Median sternotomy wires are present. Degenerative changes are noted throughout the thoracic spine. There are no acute osseous or soft tissue abnormalities. Impression: Bibasilar atelectasis without significant change. Signed by: Albaro Nelson on 10/26/2018 4:09 PM
== END ==
LOC: RAD 14:48
PROVIDERS: ATTEND Internal Medicine
DX: R05 Cough (principal)
CPT/HCPCS: 71046